=== PATIENT | male | born 1950 | race Caucasian/White ===

== ENCOUNTER → 2016-02-24 | Outpatient (CLI) | payer MEDICARE, BC ==
[~2016-02-24] MED LIST: ALPR1 PO; ASPI1TAB69 PO; ASPI81CH37 CHEW; BENA25TA3 PO; BENA25TA8 PO; CALC1TAB87 PO; CHLORO250 PO; COLY4000S PO; COMMODE 3-IN-11 MIS; CPMMACHINE; ENOX40P SQ; LACT10SO PO; LEXA5TAB PO; LISI-360 PO; LISI10TA3 PO; LORA1TAB12 PO; MULT-65 PO; MULT1TAB84 PO; NAPR500T PO; OXYC1CAP PO; PERC5TAB12 PO; PRAV20TA2 PO; VITA500L BUCCAL; VITA500S3 SL; WALKER WHEELS/F1 MIS; WARF4 PO
[2016-02-24 11:46] LABS: MEAN CORPUSCULAR HEMOGLOBIN 28.6 PG (27.0-34.0); MEAN CORPUSCULAR HGB CONC 33.7 % (32.0-36.0); PLATELET COUNT 307 TH/MM3 (150-450); RED BLOOD COUNT 4.94 MIL/MM3 (4.50-5.90); RED CELL DISTRIBUTION WIDTH 15.1 % (11.6-17.2); REVIEW FLAG FINAL; WHITE BLOOD COUNT 7.6 TH/MM3 (4.0-11.0)
[2016-02-24 12:13] LABS: ALT (GPT) 23 U/L (12-78); ANION GAP 6 MEQ/L (5-15); AST (GOT) 12 U/L (15-37); BICARBONATE 28.5 MEQ/L (21.0-32.0); BLOOD UREA NITROGEN 11 MG/DL (7-18); CHLORIDE 105 MEQ/L (98-107); GLOMERULAR FILTRATION RATE 65 ML/MIN (>89); GLUCOSE,FASTING 97 MG/DL (74-99); POTASSIUM 4.1 MEQ/L (3.5-5.1); SODIUM (NA) 139 MEQ/L (136-145)
[2016-02-24 12:38] LABS: ALKALINE PHOSPHATASE 82 U/L (45-117); FREE T4 0.96 NG/DL (0.76-1.46); HDL CHOLESTEROL 48.6 MG/DL (40.0-60.0); LDL CHOLESTEROL 118 MG/DL (0-99); TOTAL BILIRUBIN ADULT 0.4 MG/DL (0.2-1.0)
== END ==
LOC: CLAB 11:15
PROVIDERS: ATTEND Family Medicine
DX: I10 Essential (primary) hypertension (principal); R53.82 Chronic fatigue, unspecified; E11.9 Type 2 diabetes mellitus without complications
CPT/HCPCS: 36415; 80053; 80061; 82306; 82607; 84403; 84439; 84443; 85027

== ENCOUNTER 2016-04-29 13:49 | Inpatient (IN) | payer MEDICARE, BC ==
[~2016-04-29] VITALS: Ht 190.5 cm; Wt 126.9 kg
[2016-04-30] MEDS ORDERED: LEXA5TAB PO (09:15)
[2016-04-30] MEDS ORDERED: LISI10TA3 PO (09:15)
[2016-04-30] MEDS ORDERED: LORA1TAB12 PO (09:17)
[2016-04-30] MEDS ORDERED: NAPR500T PO (09:18)
[2016-04-30] MEDS ORDERED: MULT1TAB84 PO (09:20)
[2016-04-30] MEDS ORDERED: CALC1TAB87 PO (09:20)
[2016-04-30] MEDS ORDERED: VITA500L BUCCAL (09:20)
[2016-05-10] MEDS ORDERED: BENA25TA3 PO (07:20)
[2016-05-10] MEDS ORDERED: PRAV20TA2 PO (07:25)
[2016-05-10] MEDS ORDERED: OXYC1CAP PO (07:25)
[2016-05-17] VITALS (7 sets, daily range): BP systolic 117–145; BP diastolic 57–78; PULSE 59–66; RESP 16–20; TEMP 95.5–98.3; O2SAT 93–97
[2016-05-17] MEDS: POVIDONE IODINE 7.5% SCRUB 118 ML BOTTLE TOPICAL SCH (05:50)
[2016-05-17] MEDS ORDERED: SODIUM CHLOR 0.9% 250 ML INJ 250 ML ONE (05:51)
[2016-05-17] MEDS ORDERED: VANCOMYCIN HCL 1000 MG VIAL ONE (05:51)
[2016-05-17] MEDS ORDERED: LACTATED RINGER'S 1000 ML INJ 1,000 ML ONE (05:51)
[2016-05-17] MEDS ORDERED: ceFAZolin 2 GM PREMIX 50 ML ONE (05:51)
[2016-05-17] MEDS ORDERED: DEXAMETHASONE SOD PHOS 20 MG/5 ML VIAL ONE (05:51)
[2016-05-17] MEDS ORDERED: VANCOMYCIN 1000 MG/NS 250 ML (for <70 kg) IV SCH ×2 (06:00)
[2016-05-17] MEDS: CHLORHEXIDINE GLUCONATE 4% SOLN 120 ML BTL TOPICAL SCH (06:00)
[2016-05-17] MEDS ORDERED: SODIUM CHLORID 0.9% 500 ML IV PRN (06:00)
[2016-05-17] MEDS ORDERED: ceFAZolin 2 GM PREMIX 50 ML IV SCH (06:00)
[2016-05-17] MEDS ORDERED: DEXAMETHASONE SOD PHOS 20 MG/5 ML VIAL IV SCH (06:00)
[2016-05-17] MEDS ORDERED: METOPROLOL TARTRATE 25 MG TAB PO PRN (06:00)
[2016-05-17] MEDS ORDERED: INSULIN HUMAN REGULAR 1,000 UNITS/10 ML VIAL SQ PRN (06:00)
[2016-05-17] MEDS ORDERED: LACTATED RINGER'S 1000 ML IV PRN (06:00)
[2016-05-17] MEDS ORDERED: GENTAMICIN SULFATE 80 MG/2 ML VIAL ONE (06:12)
[2016-05-17] MEDS ORDERED: CHLORHEXIDINE GLUCONATE 2 % 1 PACK (2 CLOTHS) TOPICAL PRN (06:30)
[2016-05-17] MEDS ORDERED: POVIDONE IODINE 5% (ANTISEPSIS KIT) 4 APPLICATIONS EACH NARE PRN (06:30)
[2016-05-17] MEDS ORDERED: MIDAZOLAM HCL 2 MG/2 ML VIAL ONE (06:39)
[2016-05-17] MEDS ORDERED: FAMOTIDINE 20 MG/2 ML VIAL ONE (06:39)
[2016-05-17] MEDS ORDERED: ACETAMINOPHEN 1000 MG/100 ML VIAL IV ONE (06:39)
[2016-05-17] MEDS ORDERED: fentaNYL CITRATE 250 MCG/5 ML AMP ONE ×2 (06:40→09:12)
[2016-05-17] MEDS ORDERED: ROPIVACAINE PERI-ARTICULAR INJECTION. P-ARTICULR SCH ×5 (07:00)
[2016-05-17] MEDS ORDERED: TRANEXAMIC ACID IV SCH (07:00)
[2016-05-17] MEDS ORDERED: TRANEXAMIC PERI-ARTICULAR 3,000 MG/NS 100 ML P-ARTICULR SCH ×2 (07:00)
[2016-05-17] MEDS ORDERED: SODIUM CHLORIDE 0.9% IV SCH (07:00)
[2016-05-17] MEDS ORDERED: EXPAREL PERI-ARTICULAR INJECTION (TOTAL VOL. 60 ML) P-ARTICULR SCH ×2 (07:00)
[2016-05-17] MEDS ORDERED: PERC5TAB12 PO (07:10)
[2016-05-17] MEDS ORDERED: ENOX40P SQ (07:11)
[2016-05-17] MEDS ORDERED: ASPI81CH37 CHEW (07:12)
[2016-05-17] MEDS ORDERED: NALOXONE HCL 0.4 MG/ML AMP IV PRN (07:15)
[2016-05-17] MEDS ORDERED: MORPHINE SULFATE 4 MG/ML INJ IV PUSH PRN (07:15)
[2016-05-17] MEDS ORDERED: SODIUM CHLORIDE 0.9% FLUSH 5 ML FLUSH IVF PRN (07:15)
[2016-05-17] MEDS ORDERED: diphenhydrAMINE HCL 50 MG/ML VIAL IV PRN (07:15)
[2016-05-17] MEDS ORDERED: LORazepam 1 MG TAB PO PRN (07:15)
[2016-05-17] MEDS ORDERED: MAGNESIUM HYDROXIDE SUSP 30 ML CUP PO PRN (07:15)
[2016-05-17] MEDS ORDERED: Post-op Orders (for Pharmacy) MISC XX ONE (07:15)
[2016-05-17] MEDS ORDERED: ACETAMINOPHEN/HYDROcodone 325 MG/7.5 MG TAB PO PRN (07:15)
[2016-05-17] MEDS: SODIUM CHLORIDE 0.9% FLUSH 5 ML FLUSH IVF SCH ×2 (09:00→21:00)
--- NOTE | 2016-05-17 09:29 | RADRPT ---
EXAM DATE/TIME: 05/17/2016 10:15 [facility] COMPARISON: No previous studies available for comparison. INDICATIONS : Post op knee surgery MEDICAL HISTORY : None. SURGICAL HISTORY : None. ENCOUNTER: Initial ACUITY: 1 day PAIN SCORE: Non-responsive. LOCATION: Right knee FINDINGS: Patient is status post right total knee arthroplasty. Subcutaneous emphysema is seen anterior to the knee, within the knee joint and an air-fluid level in the suprapatellar region. Tibial and femoral co mponents appear well-seated. No fracture or dislocation. CONCLUSION: Postop changes right total knee arthroplasty. Kulwinder Pimentel MD on May 17, 2016 at 9:27 Board Certified Radiologist. This report was verified electronically.
[2016-05-17] MEDS: SODIUM CHLOR 0.9% 1000 ML INJ 1,000 ML IV SCH ×2 (09:30→16:54)
[2016-05-17] MEDS ORDERED: DO NOT ADM ANY ANTICOAGULANT DRUGS PRN (10:00)
[2016-05-17] MEDS ORDERED: *morphine SULFATE 8 MG/ML PERIprocedure ONLY ONE (10:09)
[2016-05-17] MEDS: ONDANSETRON HCL 4 MG/2 ML VIAL IVP PRN ×3 (11:27→22:58)
[2016-05-17] MEDS: ACETAMINOPHEN/HYDROcodone 325 MG/7.5 MG TAB PO PRN ×3 (11:28→19:46)
--- NOTE | 2016-05-17 13:12 | HHI.DCPOC ---
Discharge Care Plan Diagnosis: (1) Primary localized osteoarthrosis, lower leg Your Health Problems Are: Difficulty with ADL Goals to Promote Your Health * To prevent worsening of your condition and complications * To maintain your health at the optimal level Directions to Meet Your Goals Take your medications as prescribed Follow your dietary instruction Follow activity as directed Keep your appointments as scheduled Take your immunizations and boosters as scheduled If your symptoms worsen call your PCP, if no PCP go to Urgent Care Center or Emergency Room Smoking is Dangerous to Your Health. Avoid second hand smoke Call the 24-hour hour crisis hotline for domestic abuse at Evaristo Tee May 17, 2016 13:12
[2016-05-17] MEDS ORDERED: CPMMACHINE (13:14)
[2016-05-17] MEDS ORDERED: WALKER WHEELS/F1 MIS (13:14)
[2016-05-17] MEDS ORDERED: COMMODE 3-IN-11 MIS (13:14)
[2016-05-17] MEDS ORDERED: NEOSTIGMINE 3 MG/3 ML SYR IV ONE (14:06)
[2016-05-17] MEDS ORDERED: PHENYLEPH/NS 1000 MCG/10 ML SYR IV ONE (14:06)
[2016-05-17] MEDS ORDERED: ePHEDrine/NS 25 MG/5 ML SYR IV ONE (14:06)
[2016-05-17] MEDS ORDERED: ONDANSETRON HCL 4 MG/2 ML VIAL IV PUSH ONE (14:06)
[2016-05-17] MEDS ORDERED: PROPOFOL 200 MG/20 ML AMP IV ONE (14:06)
--- NOTE | 2016-05-17 16:01 | PD.CONS ---
HPI Service [facility] Hospitalists Consult Requested By Dr Urrutia Reason for Consult Medical management Primary Care Physician Edward Cazares MD Diagnoses: History of Present Illness Is a 66-year-old male with past medical history as detailed below who presents to [facility] for elective right knee arthroplasty. The patient states that 13 years ago he had an accident after which he needed a right knee graft. The patient has been having increasing pain in bilateral knees. The patient status post total right knee arthroplasty by Dr. Urrutia. The patient complains only of nausea, denies chest pain, denies loss of breath, denies abdominal pain, denies diarrhea, denies fevers or chills, denies dysuria. I am consulted for medical management. Review of Systems As per HPI, other systems reviewed by me and negative Past Family Social History Allergies: Coded Allergies: No Known Allergies (Unverified , 04/30/16) Past Medical History 1. HTN 2. Hyperlipidemia 3. Diabetes 4. Depression/anxiety 5. As per records pulmonary embolism Past Surgical History 1. Left hip surgery Reported Medications Reported Meds & Active Scripts Aspirin Low Dose (Aspirin) 81 Mg Chew 81 Mg CHEW BID Lovenox Inj (Enoxaparin Sodium) 40 Mg/0.4 Ml Syr 40 Mg SQ DAILY Percocet (Oxycodone-Acetaminophen) 5-325 mg Tab 1-2 Tab PO Q4H PRN Oxycodone (Oxycodone HCl) 5 Mg Cap 5 Mg PO Q8H PRN Pravastatin 20 Mg Tab 20 Mg PO HS Benadryl Allergy (Diphenhydramine HCl) 25 Mg Tab 25 Mg PO HS PRN Vitamin B-12 (Cyanocobalamin) 500 Mcg Lozg 2,500 Mcg BUCCAL DAILY Calcium 600 with Vitamin D (Calcium Carbonate-Cholecalciferol) 600-400 mg-Unit Tab 1 Tab PO DAILY Multivitamin Adults (Multiple Vitamins W/ Minerals) 1 Tab 1 Tab PO DAILY Naproxen 500 Mg Tab 500 Mg PO BID PRN Lorazepam 1 Mg Tab 1 Mg PO HS PRN Lexapro (Escitalopram Oxalate) 5 Mg Tab 5 Mg PO HS Lisinopril 10 Mg Tab 10 Mg PO HS Active Ordered Medications Current Medications Medications (Trade) Dose Ordered Sig/Chani Route Start Time Stop Time Status Last Admin (Betadine 7.5% Scrub) 1 applic ONCE TOPICAL 05/17/16 06:00 05/20/16 05:59 05/17/16 05:50 Chlorhexidine Gluconate 1 applic 1 applic ONCE TOPICAL 05/17/16 06:00 05/20/16 05:59 Lactated Ringer's 1,000 ml @ 30 mls/hr Q24H PRN IV 05/17/16 06:00 05/20/16 05:59 05/17/16 05:50 (NS 1000 ml Inj) 1,000 ml @ 100 mls/hr Q10H IV 05/17/16 07:05 05/17/16 09:30 (NS Flush) 2 ml UNSCH PRN IVF 05/17/16 07:15 IV Flush 2 ml 2 ml BID IVF 05/17/16 09:00 (Ancef Inj/NS Inj) 100 ml @ 200 mls/hr Q6H IV 05/17/16 12:00 05/18/16 00:29 05/17/16 11:27 (Lovenox Inj) 40 mg Q24H SQ 05/18/16 08:00 (Morphine Inj) 3 mg Q3H PRN IV PUSH 05/17/16 07:15 ([place] 7.5-325 Mg) 1 tab Q4H PRN PO 05/17/16 07:15 ([place] 7.5-325 Mg) 2 tab Q4H PRN PO 05/17/16 07:15 05/17/16 15:51 (Theragran M Tab) 1 tab BID PO 05/18/16 21:00 07/17/16 20:59 (Zofran Inj) 4 mg Q6H PRN IVP 05/17/16 07:15 05/17/16 11:27 (Colace) 100 mg BID PO 05/18/16 21:00 (Milk Of Magnesia Liq) 30 ml DAILY PRN PO 05/17/16 07:15 (Narcan Inj) 0.4 mg UNSCH PRN IV 05/17/16 07:15 (Benadryl Inj) 25 mg Q6H PRN IV 05/17/16 07:15 (Lexapro) 5 mg HS PO 05/17/16 21:00 (Prinivil) 10 mg HS PO 05/17/16 21:00 (Ativan) 1 mg HS PRN PO 05/17/16 07:15 Miscellaneous Information ALL N[facility] PRN .XX 05/17/16 10:00 05/18/16 09:59 Family History Patient's daughter has diabetes. Social History The patient denies drinking alcohol, smoking or using illicit drugs. The patient is and lives with . He has 3 grownup children. Physical Exam Vital Signs Vital Signs Date Time Temp Pulse Resp B/P Pulse Ox O2 Delivery O2 Flow Rate FiO2 05/17/16 13:00 96.4 66 16 117/57 95 05/17/16 12:36 93 Nasal Cannula 2.00 05/17/16 11:00 97.0 66 16 145/74 93 05/17/16 10:00 98.4 73 15 166/67 95 Nasal Cannula 2 05/17/16 09:45 68 15 146/78 92 Nasal Cannula 2 05/17/16 09:30 72 15 155/77 93 Nasal Cannula 3 05/17/16 09:15 70 15 153/73 93 Nasal Cannula 3 05/17/16 09:05 98.4 83 15 157/78 96 Nasal Cannula 3 05/17/16 05:52 98.3 63 20 140/78 95 Physical Exam GENERAL: This is a well-nourished, well-developed patient, in no apparent distress. SKIN: No rashes, ecchymoses or lesions. Cool and dry. HEAD: Atraumatic. Normocephalic. No temporal or scalp tenderness. EYES: Pupils equal round and reactive. Extraocular motions intact. No scleral icterus. No injection or drainage. ENT: Nose without bleeding, purulent drainage or septal hematoma. Throat without erythema, tonsillar hypertrophy or exudate. Uvula midline. Airway patent. NECK: Trachea midline. No JVD or lymphadenopathy. Supple, nontender, no meningeal signs. CARDIOVASCULAR: Regular rate and rhythm without murmurs, gallops, or rubs. RESPIRATORY: Clear to auscultation. Breath sounds equal bilaterally. No wheezes , rales, or rhonchi. GASTROINTESTINAL: Abdomen soft, non-tender, nondistended. No hepato-splenomegaly , or palpable masses. No guarding. MUSCULOSKELETAL: Right lower extremity is bandaged. Range of motion decreased in right knee due to pain. Pedal pulses are palpable and strong. There is good capillary refill in bilateral extremities. There is some edema in the postsurgical right knee. NEUROLOGICAL: Awake and alert. Cranial nerves II through XII intact. Motor and sensory grossly within normal limits. Five out of 5 muscle strength in all muscle groups. Normal speech. Laboratory Laboratory Tests Test 05/17/16 05:45 Blood Type O POSITIVE Antibody Screen NEGATIVE Imaging Last Impressions Knee X-Ray 05/17/16 0705 Signed Impressions: Service Date/Time: Tuesday, May 17, 2016 10:15 - CONCLUSION: Postop changes right total knee arthroplasty. Kulwinder Pimentel MD Assessment and Plan Problem List: (1) Primary localized osteoarthrosis, lower leg ICD Code: M17.10 Status: Acute Plan: Patient status post total right knee arthroplasty. Continue pain control as per orthopedic surgery recommendations. IV Zofran for nausea. (2) HTN (hypertension) ICD Code: I10 Status: Chronic Plan: Blood pressure seems to be stable. Continue home antihypertensive medications. The patient is on lisinopril. (3) Hyperlipidemia ICD Code: E78.5 Status: Acute Plan: Hold statin for now. May resume upon discharge. (4) Depression ICD Code: F32.9 Status: Acute Plan: On Lexapro. Assessment and Plan GI prophylaxis: Add PPI. DVT: SCDs, chemoprophylaxis as per orthopedic surgery. Code Status Full code Discussed Condition With Patient, , RN Problem Qualifiers (1) HTN (hypertension): Qualified Code: I10 - Essential hypertension (2) Depression: Qualified Code: F32.9 - Depression, unspecified depression type Adan Patricio MD May 17, 2016 16:01
[2016-05-17] MEDS ORDERED: ESCITALOPRAM OXALATE 10 MG TAB PO SCH (21:00)
[2016-05-17] MEDS ORDERED: LISINOPRIL 10 MG TAB PO SCH (21:00)
[2016-05-18 00:12] VITALS: BP 124/60; PULSE 64; RESP 19; TEMP 96; O2SAT 98
[2016-05-18] MEDS: SODIUM CHLOR 0.9% 1000 ML INJ 1,000 ML IV SCH ×2 (03:05→10:04)
[2016-05-18 04:11] VITALS: BP 136/64; PULSE 20; RESP 18; TEMP 96.1; O2SAT 97
[2016-05-18] MEDS: ACETAMINOPHEN/HYDROcodone 325 MG/7.5 MG TAB PO PRN ×3 (05:49→13:39)
[2016-05-18] MEDS: ONDANSETRON HCL 4 MG/2 ML VIAL IVP PRN ×2 (05:49→13:39)
[2016-05-18] MEDS: CHLORHEXIDINE GLUCONATE 4% SOLN 120 ML BTL TOPICAL SCH (06:00)
[2016-05-18] MEDS: POVIDONE IODINE 7.5% SCRUB 118 ML BOTTLE TOPICAL SCH (06:00)
[2016-05-18 08:00] VITALS: BP 135/71; PULSE 59; RESP 18; TEMP 96; O2SAT 95
[2016-05-18 08:00] LABS: MEAN CELL VOLUME 86.7 FL (80.0-100.0); MEAN CORPUSCULAR HEMOGLOBIN 29.2 PG (27.0-34.0); MEAN CORPUSCULAR HGB CONC 33.6 % (32.0-36.0); PLATELET COUNT 261 TH/MM3 (150-450); RED BLOOD COUNT 4.15 MIL/MM3 (4.50-5.90); RED CELL DISTRIBUTION WIDTH 13.9 % (11.6-17.2); REVIEW FLAG FINAL; WHITE BLOOD COUNT 16.3 TH/MM3 (4.0-11.0)
[2016-05-18] MEDS ORDERED: ENOXAPARIN SODIUM 40 MG/0.4 ML SYRINGE SQ SCH (08:00)
[2016-05-18 08:11] LABS: BICARBONATE 21.2 MEQ/L (21.0-32.0); POTASSIUM 4.6 MEQ/L (3.5-5.1)
[2016-05-18] MEDS: SODIUM CHLORIDE 0.9% FLUSH 5 ML FLUSH IVF SCH (09:00)
--- NOTE | 2016-05-18 09:00 | PD.ORT.PN ---
Subjective Post Op Day #: 1 Subjective Remarks doing well. pain under control. Objective Vitals Vital Signs Date Time Temp Pulse Resp B/P Pulse Ox O2 Delivery O2 Flow Rate FiO2 05/18/16 08:00 96.0 59 18 135/71 95 05/18/16 04:11 96.1 20 18 136/64 97 05/18/16 00:12 96.0 64 19 124/60 98 05/17/16 19:34 96.0 59 20 141/69 97 05/17/16 18:27 94 21 05/17/16 16:57 16 05/17/16 16:00 95.5 65 18 126/70 94 05/17/16 13:00 96.4 66 16 117/57 95 05/17/16 12:36 93 Nasal Cannula 2.00 05/17/16 11:00 97.0 66 16 145/74 93 05/17/16 10:00 98.4 73 15 166/67 95 Nasal Cannula 2 05/17/16 09:45 68 15 146/78 92 Nasal Cannula 2 05/17/16 09:30 72 15 155/77 93 Nasal Cannula 3 05/17/16 09:15 70 15 153/73 93 Nasal Cannula 3 05/17/16 09:05 98.4 83 15 157/78 96 Nasal Cannula 3 I/O 05/17/16 05/17/16 05/17/16 05/18/16 05/18/16 05/18/16 07:00 15:00 23:00 07:00 15:00 23:00 Intake Total 1000 ml 480 ml 480 ml Output Total 300 ml 500 ml 850 ml Balance 700 ml -20 ml -370 ml Intake Oral 480 ml 480 ml IV Total 100 ml Other 900 ml Output Urine Total 250 ml 500 ml 850 ml Estimated Blood Loss 50 ml # Bowel Movements 0 0 Result Diagram: 05/18/16 0720 05/18/16 0700 Objective Remarks in bed, nad incision no erythema, no drainage neg homans nvi Assessment & Plan Ortho Post Op Day #: 1 Problem List: Assessment and Plan s/p R TKA wbat daily dressing changes lovenox d/c planning home. patient wants to start OP PT tomorrow cleared for d/c from ortho f/up dr. redmond 2 weeks Evaristo Tee May 18, 2016 09:00
[2016-05-18 12:00] VITALS: BP 134/62; PULSE 60; RESP 18; TEMP 95.9; O2SAT 97
--- NOTE | 2016-05-18 12:25 | HHI.PR ---
Subjective Remarks Patient is lying in bed pain controlled denies nausea, chest pain or sob denies fevers/chills. wbc elevated Objective Vitals Vital Signs Date Time Temp Pulse Resp B/P Pulse Ox O2 Delivery O2 Flow Rate FiO2 05/18/16 08:00 96.0 59 18 135/71 95 05/18/16 04:11 96.1 20 18 136/64 97 05/18/16 00:12 96.0 64 19 124/60 98 05/17/16 19:34 96.0 59 20 141/69 97 05/17/16 18:27 94 21 05/17/16 16:57 16 05/17/16 16:00 95.5 65 18 126/70 94 05/17/16 13:00 96.4 66 16 117/57 95 05/17/16 12:36 93 Nasal Cannula 2.00 I/O 05/17/16 05/17/16 05/17/16 05/18/16 05/18/16 05/18/16 07:00 15:00 23:00 07:00 15:00 23:00 Intake Total 1000 ml 480 ml 480 ml 695 ml Output Total 300 ml 500 ml 850 ml Balance 700 ml -20 ml -370 ml 695 ml Intake Oral 480 ml 480 ml IV Total 100 ml 695 ml Other 900 ml Output Urine Total 250 ml 500 ml 850 ml Estimated Blood Loss 50 ml # Bowel Movements 0 0 Result Diagram: 05/18/1671905/18/16 07 Imaging Last Impressions Knee X-Ray 05/17/16 07 Signed Impressions: Service Date/Time: Tuesday, May 17, 2016 10:15 - CONCLUSION: Postop changes right total knee arthroplasty. Kulwinder Pimentel MD Objective Remarks GENERAL: This is a well-nourished, well-developed patient, in no apparent distress. SKIN: No rashes, ecchymoses or lesions. Cool and dry. HEAD: Atraumatic. Normocephalic. No temporal or scalp tenderness. EYES: Pupils equal round and reactive. Extraocular motions intact. No scleral icterus. No injection or drainage. ENT: Nose without bleeding, purulent drainage or septal hematoma. Throat without erythema, tonsillar hypertrophy or exudate. Uvula midline. Airway patent. NECK: Trachea midline. No JVD or lymphadenopathy. Supple, nontender, no meningeal signs. CARDIOVASCULAR: Regular rate and rhythm without murmurs, gallops, or rubs. RESPIRATORY: Clear to auscultation. Breath sounds equal bilaterally. No wheezes , rales, or rhonchi. GASTROINTESTINAL: Abdomen soft, non-tender, nondistended. No hepato-splenomegaly , or palpable masses. No guarding. MUSCULOSKELETAL: Right lower extremity is bandaged and on knee range of motion machine. Range of motion decreased in right knee due to pain. Pedal pulses are palpable and strong. There is good capillary refill in bilateral extremities. There is some edema in the postsurgical right knee. NEUROLOGICAL: Awake and alert. Cranial nerves II through XII intact. Motor and sensory grossly within normal limits. Five out of 5 muscle strength in all muscle groups. Normal speech. Procedures sp Right total knee arthroplasty on 05/17/16 Medications and IVs Current Medications Medications (Trade) Dose Ordered Sig/Chani Route Start Time Stop Time Status Last Admin (Betadine 7.5% Scrub) 1 applic ONCE TOPICAL 05/17/16 06:00 05/20/16 05:59 05/17/16 05:50 Chlorhexidine Gluconate 1 applic 1 applic ONCE TOPICAL 05/17/16 06:00 05/20/16 05:59 Lactated Ringer's 1,000 ml @ 30 mls/hr Q24H PRN IV 05/17/16 06:00 05/20/16 05:59 05/17/16 05:50 (NS 1000 ml Inj) 1,000 ml @ 100 mls/hr Q10H IV 05/17/16 07:05 05/17/16 09:30 (NS Flush) 2 ml UNSCH PRN IVF 05/17/16 07:15 (NS Flush) 2 ml BID IVF 05/17/16 09:00 (Lovenox Inj) 40 mg Q24H SQ 05/18/16 08:00 05/18/16 09:52 (Morphine Inj) 3 mg Q3H PRN IV PUSH 05/17/16 07:15 ([place] 7.5-325 Mg) 1 tab Q4H PRN PO 05/17/16 07:15 ([place] 7.5-325 Mg) 2 tab Q4H PRN PO 05/17/16 07:15 05/18/16 09:53 (Theragran M Tab) 1 tab BID PO 05/18/16 21:00 07/17/16 20:59 (Zofran Inj) 4 mg Q6H PRN IVP 05/17/16 07:15 05/18/16 05:49 (Colace) 100 mg BID PO 05/18/16 21:00 (Milk Of Magnesia Liq) 30 ml DAILY PRN PO 05/17/16 07:15 (Narcan Inj) 0.4 mg UNSCH PRN IV 05/17/16 07:15 (Benadryl Inj) 25 mg Q6H PRN IV 05/17/16 07:15 (Lexapro) 5 mg HS PO 05/17/16 21:00 05/17/16 19:43 (Prinivil) 10 mg HS PO 05/17/16 21:00 05/17/16 19:43 (Ativan) 1 mg HS PRN PO 05/17/16 07:15 Urinary Catheter: No Vascular Central Line Catheter: No A/P Problem List: (1) Primary localized osteoarthrosis, lower leg ICD Code: M17.10 Status: Acute Plan: Patient status post total right knee arthroplasty. Continue pain control as per orthopedic surgery recommendations. IV Zofran for nausea. Patient cleared for DC by orthopedic surgery. (2) HTN (hypertension) ICD Code: I10 Status: Chronic Plan: Bp stable, continue to monitor bp. Continue lisinopril. (3) Hyperlipidemia ICD Code: E78.5 Status: Acute Plan: Hold statin for now. May resume upon discharge. (4) Depression ICD Code: F32.9 Status: Acute Plan: On Lexapro. Seems stable. Assessment and Plan DVT prophylaxis: Lovenox SQ. Discharge Planning Patient is medically clear for DC. DC as per primary team. Problem Qualifiers (1) HTN (hypertension): Qualified Code: I10 - Essential hypertension (2) Depression: Qualified Code: F32.9 - Depression, unspecified depression type Adan Patricio MD May 18, 2016 12:25
[2016-05-18] MEDS ORDERED: DOCUSATE SODIUM 100 MG CAP PO SCH (21:00)
[2016-05-18] MEDS ORDERED: MULTIVITAMINS/MINERALS THERAPEUTIC TAB PO SCH (21:00)
--- NOTE | 2016-05-19 08:48 | MP ---
cc: RICKIE CUNNINGHAM DATE OF SURGERY 05/17/16 PREOPERATIVE DIAGNOSIS Right knee osteoarthritis POSTOPERATIVE DIAGNOSES Right knee osteoarthritis PROCEDURE Right total knee arthroplasty SURGEON Dr. Raffi Cunningham TECHNICAL SPECIALIST CYTOGENETICS DONNIE Rahman ANESTHESIA General with a femoral nerve block ESTIMATED BLOOD LOSS 50 mL COMPLICATIONS None. IMPLANTS USED. DePuy attune size 10 posterior stabilized, femoral component size 10 rotating platform tibia baseplate, size 5-mm tibial insert, size 41 mm patella. JUSTIFICATION The patient is a 66-year male with a history of severe end-stage osteoarthritis involving the right knee. He has severe disabling pain with standing, walking and ambulation, weightbearing activities and severe pain at rest. He has failed greater than three months of nonoperative conservative treatment to include medication therapy injections, ambulatory assistive aids, home exercise program, activity modification. The patient is not overweight. X-ray of the right knee reveal reveals severe end-stage osteoarthritis with [id number] joint space narrowing, subchondral sclerosis, subchondral cyst osteophyte formation and varus deformity. The patient was counseled as to risks, benefits and alternatives to a total knee arthroplasty. The risks discussed include but limited to bleeding, infection, damage to nerves, blood vessels, pain, stiffness, failure of components, blood clots, pulmonary embolism and even . The patient's pain is severe and he favored benefits over the risks and did wish to proceed with surgery. PROCEDURE IN DETAIL A written consent obtained. The patient identified, taken to the operating room and placed supine on the operating table. General anesthesia was administered as well as 2 grams of IV Ancef and 1 gram of IV vancomycin. He did receive a preoperative femoral nerve block by the anesthesiologist. A well-padded tourniquet was placed on the right thigh. The right lower extremity prepped and draped using as isopropyl alcohol, Hibiclens solution and Chloraprep solution. After time-out was performed, an Esmarch bandage was used to exsanguinate the right lower extremity. The tourniquet was inflated to 250 mmHg. A longitudinal incision was made over the anterior aspect of the right knee and medial parapatellar arthrotomy was performed. The patella was everted and patellar resection guide was used to resect 9 mm of patella. A size 41 mm guide was placed, three drill holes were placed and a 41 mm trial fit well. Attention was turned to the femur where an intramedullary guide was placed. The distal femoral guide was set to remove 10 mm of distal femur 5 degrees off the valgus axis alignment. Oscillating saw was used to perform distal femoral cut. Attention was turned to the tibia where an extramedullary tibial guide was used to resect 5 mm off the lowest portion of the medial tibial plateau. The tibial guide set in place. Tibial cut was performed. A 5 mm spacer block showed full extension. Attention was turned back to the femur. The AP sizer block measured size 10. The anterior reference 3 degree external rotation guide was used to pin a size [address]. The anterior and posterior chamfer cuts were performed. A size 10 PCL box guide pinned in place. PCL was boxed with an oscillating saw. The medial and lateral meniscus remnants were removed as well as bone and soft tissue debris from the posterior portion of the knee. A size 10 tibial base was pinned in place. Tibia was drilled were evaluated and final component was cemented in place. There was lateral patellar tracking. A lateral release was performed which improved patellar tracking. Range of motion 0-140, no evidence of tibial lift-off. Varus-valgus balance appeared appropriate and symmetric. With the tourniquet deflated, Bovie cautery was used for hemostasis. The knee was thoroughly irrigated with sterile saline pulse lavage antibiotic impregnated solution. The arthrotomy incision was closed with #1 Vicryl suture. Subcutaneous layer with 2-0 Vicryl suture and skin was closed with Dermabond. Sterile dressing applied. The patient tolerated the procedure well. No intraoperative complications noted. Wally Tee, physician digital sales assistant certified, was present during the entire procedure to include patient positioning and the procedure itself. The medical necessity of a physician digital sales assistant was indicated in patient due to the complexity of the procedure. He assisted with appropriate manipulation of the leg and also traction of muscle, tendon, bone and neurovascular structures. He assisted with preparation of bone and also implantation of the prosthetic replacement. MD JASMIN Ramirez/ /8:44 AM 8:42 AM
--- NOTE | 2016-05-24 08:31 | MD ---
cc: RICKIE URRUTIA M.D. ADMISSION DATE: 05/17/2016 DISCHARGE DATE: 05/18/2016 ADMISSION DIAGNOSIS Severe degenerative osteoarthritis right knee. DISCHARGE DIAGNOSIS Severe degenerative osteoarthritis right knee. HISTORY OF PRESENT ILLNESS Mr. Zuñiga is a 66-year-old male who presented to the [facility] for evaluation by Dr. Rickie Urrutia regarding his severe and progressive right knee pain. The patient states the right knee has been bothering him for many years and has a history of surgery 10 plus years ago on his right knee. He states currently his pain is constant, severe aching sensation aggravated with weightbearing activities. He has no alleviating factors, although in the past he has tried medications, bracing, physical therapy, home exercise program, previous surgery, as well as corticosteroid injections without significant relief of symptoms. He does have x-ray evidence of severe degenerative osteoarthritis of the right knee. While in the office the patient was counseled on his diagnosis and treatment options. The risks, benefits, indications were all discussed in great detail. The patient did elect to proceed with surgical intervention to include a right total knee arthroplasty. PROCEDURE PERFORMED Date of surgery 05/17/2016, right total knee arthroplasty. POSTOP After surgery the patient was admitted to [facility] where he received appropriate medical management, pain control, DVT prophylaxis, physical therapy as well. DISCHARGE Once being discharged from the hospital, the patient is cleared to go home. He is in stable condition. He may weight-bear as tolerated. The patient has been instructed on appropriate wound care management and is to receive daily dressing changes. He has been provided prescriptions for pain control as well as DVT prophylaxis medication. The patient did elect to proceed with outpatient physical therapy and has been provided an appointment to start that, he has also been provided an appointment to see Dr. Rickie Urrutia back to the office approximately 2 weeks from his date of surgery. The patient has asked appropriate questions which have all been answered. He has been discharged. Dictated by: DONNIE Avilez MD JASMIN Ramirez/WILLIAM /8:06 AM /8:31 AM
[2016-06-03] MEDS ORDERED: ASPI1TAB69 PO (11:51)
== END 2016-05-18 16:57 | disposition home or self-care (01) | DRG 470 ==
LOC: HSDI 05-17 05:14 → N06B 05-17 10:46
PROVIDERS: ADMIT Orthopaedic Surgery Sports Medicine; ATTEND Orthopaedic Surgery Sports Medicine
PROC: 0SRC0J9 Replacement of Right Knee Joint with Synthetic Substitute, Cemented, Open Approach (ICD-10-PCS; principal; 2016-05-17 06:55)
DX: M17.11 Unilateral primary osteoarthritis, right knee (principal); I10 Essential (primary) hypertension; E78.5 Hyperlipidemia, unspecified; E11.9 Type 2 diabetes mellitus without complications; F41.8 Other specified anxiety disorders; Z86.711 Personal history of pulmonary embolism
CPT/HCPCS: 73560; 80048; 85027; 86850; 86900; 86901; 94150; C1776; C9290; J0131; J0690; J1100; J1580; J1650; J2250; J2270; J2370; J2405; J2710; J3010; J3370; J7030; J7050; J7120; L1830

== ENCOUNTER → 2016-04-30 | Outpatient (CLI) | payer MEDICARE, BC ==
[2016-04-30 09:32] LABS: AUTOMATED NEUTROPHIL # 5.1 TH/MM3 (1.8-7.7); BASOPHIL % 0.4 % (0.0-2.0); EOSINOPHIL # 0.1 TH/MM3 (0-0.4); EOSINOPHIL % 1.7 % (0.0-4.0); HEMATOCRIT 43.8 % (39.0-51.0); HEMO FLAGS DIFF FINAL; LYMPH % 24.9 % (9.0-44.0); MEAN CELL VOLUME 87.4 FL (80.0-100.0); MEAN CORPUSCULAR HEMOGLOBIN 28.9 PG (27.0-34.0); MEAN CORPUSCULAR HGB CONC 33.1 % (32.0-36.0); MONO % 8.6 % (0.0-8.0); NEUT % 64.4 % (16.0-70.0); PLATELET COUNT 288 TH/MM3 (150-450); RED BLOOD COUNT 5.02 MIL/MM3 (4.50-5.90); RED CELL DISTRIBUTION WIDTH 14.5 % (11.6-17.2)
[2016-04-30 09:38] LABS: BLOOD, URINE NEG (NEG); COMMENT (UR) CULT NOT INDICATED; CULTURE IF INDICATED CULT NOT INDICATED; GLUCOSE,URINE NEG (NEG); KETONE, URINE NEG (NEG); MUCUS URINE FEW /lpf (OCC); NITRITE,URINE NEG (NEG); PH, URINE 5.5 (5.0-8.5); URINE COLOR YELLOW (YELLW/STRAW)
[2016-04-30 09:39] LABS: APTT (PATIENT) 28.1 SEC (24.3-30.1); PROTHROMBIN TIME - PATIENT 11.1 SEC (9.8-11.6)
[2016-04-30 09:51] LABS: WESTERGREN SEDIMENTATION RATE 5 mm/hr (0-20)
[2016-04-30 10:05] LABS: ALKALINE PHOSPHATASE 79 U/L (45-117); ALT (GPT) 22 U/L (12-78); ANION GAP 7 MEQ/L (5-15); AST (GOT) 15 U/L (15-37); BICARBONATE 28.4 MEQ/L (21.0-32.0); BLOOD UREA NITROGEN 12 MG/DL (7-18); CHLORIDE 105 MEQ/L (98-107); GLOMERULAR FILTRATION RATE 58 ML/MIN (>89); GLUCOSE,FASTING 152 MG/DL (74-99); POTASSIUM 4.3 MEQ/L (3.5-5.1); SODIUM (NA) 140 MEQ/L (136-145); TOTAL BILIRUBIN ADULT 0.4 MG/DL (0.2-1.0)
--- NOTE | 2016-04-30 11:38 | RADRPT ---
EXAM DATE/TIME: 04/30/2016 09:54 [facility] COMPARISON: CHEST SINGLE AP, January 19, 2015, 20:19. INDICATIONS : Evaluate for pneumonia, pneumothorax, or communicable disease. Pre-op right total knee. MEDICAL HISTORY : Hypertension. SURGICAL HISTORY : None. ENCOUNTER: Initial ACUITY: 1 day PAIN SCORE: 0/10 LOCATION: Bilateral chest FINDINGS: The heart is normal in size. There are mild chronic interstitial changes throughout the pulmonary par enchyma. Visualized bony structures demonstrate degenerative changes but are otherwise intact. CONCLUSION: 1. No acute cardiopulmonary findings. Reece Gray MD on April 30, 2016 at 11:36 Board Certified Radiologist. This report was verified electronically.
--- NOTE | 2016-05-01 16:19 | EKG ---
Date Performed: 04/30/2016 Time Performed: 09:09:01 PTAGE: 66 years EKG: Sinus rhythm Since previous tracing, no significant change noted NORMAL ECG NO PREVIOUS TRACING DOCTOR: Luis Zamora Interpretating Date/Time 05/01/2016 16:17:52
== END ==
LOC: CPRE 08:48
PROVIDERS: ATTEND Orthopaedic Surgery Sports Medicine
DX: M25.60 Stiffness of unspecified joint, not elsewhere classified (principal); M25.50 Pain in unspecified joint; M17.11 Unilateral primary osteoarthritis, right knee; Z79.01 Long term (current) use of anticoagulants; Z01.810 Encounter for preprocedural cardiovascular examination
CPT/HCPCS: 36415; 71020; 80053; 81001; 85025; 85610; 85652; 85730; 93005

== ENCOUNTER 2016-05-10 06:31 | Day surgery (SDC) | payer MEDICARE, BC ==
[~2016-05-10] VITALS: Ht 193 cm; Wt 122.7 kg
[~2016-05-10 06:31] MED LIST changes: -ALPR1 PO; -ASPI1TAB69 PO; -ASPI81CH37 CHEW; -BENA25TA3 PO; -BENA25TA8 PO; -CHLORO250 PO; -COLY4000S PO; -COMMODE 3-IN-11 MIS; -CPMMACHINE; -ENOX40P SQ; -LACT10SO PO; -LISI-360 PO; -MULT-65 PO; -OXYC1CAP PO; -PERC5TAB12 PO; -PRAV20TA2 PO; -VITA500S3 SL; -WALKER WHEELS/F1 MIS; -WARF4 PO
[2016-05-10 06:52] VITALS: BP 152/86; PULSE 57; RESP 20; TEMP 98.1; O2SAT 97
[2016-05-10] MEDS ORDERED: BENA25TA3 PO (07:20)
[2016-05-10] MEDS ORDERED: PRAV20TA2 PO (07:25)
[2016-05-10] MEDS ORDERED: OXYC1CAP PO (07:25)
[2016-05-10] MEDS ORDERED: SODIUM CHLORIDE 0.9% 1000 ML IV SCH (08:00)
[2016-05-10] MEDS ORDERED: MIDAZOLAM HCL 5 MG/5 ML VIAL ONE (09:22)
[2016-05-10] MEDS ORDERED: fentaNYL CITRATE 250 MCG/5 ML AMP ONE (09:22)
[2016-05-10 10:05] VITALS: BP 143/74; PULSE 54; RESP 20; TEMP 98.1; O2SAT 94
[2016-05-10 10:20] VITALS: BP 135/77; PULSE 52; RESP 20; O2SAT 94
[2016-05-10] MEDS ORDERED: IOHEXOL 350 MG/ML 50 ML BTL (for RAD DIAG) IV ONE (10:27)
--- NOTE | 2016-05-10 10:28 | PD.RAD ---
Post Procedure Progress Note Procedure Date: May 10, 2016 Supervising Radiologist: Arnel Oquendo Plan of Activity See PACS Report for procedural detail/treatment Vascular-Venous Procedure Procedure 1 Procedure(s): Retrievable IVC Filter Access Access Site(s): Right Jugular Vein Closure Site(s): Right manual pressure Arnel Oquendo MD May 10, 2016 10:28
[2016-05-10 10:50] VITALS: BP 129/68; PULSE 51; RESP 20; O2SAT 95
[2016-05-10 11:20] VITALS: BP 111/64; PULSE 45; RESP 20; O2SAT 93
--- NOTE | 2016-05-10 11:40 | RADRPT ---
EXAM DATE/TIME: 05/10/2016 09:43 [facility] COMPARISON: No previous studies available for comparison. INDICATIONS : Patient is in need of placement of a retrievable IVC filter due to history of DVT and PE. MEDICAL HISTORY : History of anemia, HTN. SURGICAL HISTORY : History of left femoral repair, right shoulder, left hand, bilateral elbows, bilateral knee, left hip surgeries. ENCOUNTER: Initial ACUITY: 2 weeks PAIN SCORE: 5/10 LOCATION: Right knee FLUORO TIME: 1.0 minutes IMAGE SERIES: 2 ACCESS SITE: Right Internal jugular vein SEDATION TIME: 30 minutes CONTRAST: 1.) 10 cc Omnipaque (iohexol) 350 MEDICATION(S): 1.) 3 mg midazolam (Versed) IV 2.) 150 mcg fentanyl (Sublimaze) IV DEVICE(S): 1.) Inferior vena cava Bard Jesusita filter PROCEDURE : 1. Ultrasound-guided venipuncture. 2. Inferior venacavogram. 3. Inferior vena cava filter placement. 4. Conscious sedation with continuous EKG and oximetry monitoring. The risks, benefits and alternatives to the procedure were explained and verbal and written consent w as obtained. The site was prepped in sterile fashion. Full sterile technique was used, including ca p, mask, sterile gloves and gown and a large sterile sheet. Hand hygiene and 2% chlorhexidine and/or betadine/alcohol prep was utilized per protocol for cutaneous antisepsis. The skin and subcutaneous tissues were infiltrated with local anesthetic solution. With ultrasound and fluoroscopic guidance the targeted vein was punctured and a vascular sheath was p laced. Inferior venacavogram was performed to demonstrate level of renal veins. No caval thrombus was identified. The prescribed filter was deployed in the infrarenal inferior vena cava. Following deplo yment the filter was identified in good position. Conscious sedation was performed with the prescribed dosages and duration as above in the presence of an independent trained radiology nurse to assist in the monitoring of the patient. EKG and oximetry remained stable throughout the procedure. The patient tolerated the procedure well and there were n o complications. The patient was sent to post anesthesia recovery in stable condition. CONCLUSION: Uncomplicated inferior vena cava filter placement as above. Arnel Oquendo MD on May 10, 2016 at 11:38 Board Certified Radiologist. This report was verified electronically.
[2016-05-10 12:03] VITALS: BP 151/78; PULSE 60; RESP 20; O2SAT 96
[2016-06-03] MEDS ORDERED: ASPI1TAB69 PO (11:51)
== END 2016-05-10 12:18 | disposition home or self-care (01) ==
LOC: HRIP 06:31 → HROP 06:31
PROVIDERS: ATTEND Orthopaedic Surgery Sports Medicine
DX: Z45.2 Encounter for adjustment and management of vascular access device (principal); M17.11 Unilateral primary osteoarthritis, right knee; I10 Essential (primary) hypertension; Z86.711 Personal history of pulmonary embolism; Z86.718 Personal history of other venous thrombosis and embolism
CPT/HCPCS: 37191; 99152; 99153; C1769; C1880; J2250; J3010; J7030; Q9967

== ENCOUNTER 2016-05-22 19:10 | Emergency (ER) | payer MEDICARE, BC ==
[~2016-05-22] VITALS: Ht 185.4 cm; Wt 88.0 kg
[~2016-05-22 19:10] MED LIST changes: +ASPI81CH37 CHEW; +BENA25TA3 PO; +COMMODE 3-IN-11 MIS; +CPMMACHINE; +ENOX40P SQ; -NAPR500T PO; +PERC5TAB12 PO; +PRAV20TA2 PO; +WALKER WHEELS/F1 MIS
[2016-05-22 19:14] VITALS: BP 127/60; PULSE 116; RESP 16; TEMP 98.5; O2SAT 97
[2016-05-22] MEDS ORDERED: CHLORO250 PO (19:50)
[2016-05-22] MEDS ORDERED: LACTULOSE SYRUP 20 GM/30 ML CUP PO ONE (20:00)
[2016-05-22] MEDS ORDERED: SOD PHOSPHATE/SOD BIPHOSPHATE (ADULT) ENEMA 133ML RECTAL ONE (20:00)
[2016-05-22] MEDS ORDERED: LACT10SO PO (20:05)
[2016-05-22] MEDS ORDERED: COLY4000S PO (20:05)
--- NOTE | 2016-05-22 20:05 | PD ---
HPI Chief Complaint: GI Complaint Time Seen by Provider: 19:49 Travel History International Travel<30 days: No Contact w/Intl Traveler<30days: No Traveled to known affect area: No History of Present Illness HPI 66-year-old male who is status post right knee replacement on 05/17/16, here for evaluation of constipation. The patient has been taking Percocet 5/325 every 4 hours after his knee surgery, last dose was yesterday. His last bowel movement was the day before his surgery. He is complaining of some mild lower abdominal/ left-sided discomfort. No vomiting. No fevers. No history of abdominal surgeries. He is urinating without difficulty. PFSH Past Medical History Arthritis: No Asthma: No Autoimmune Disease: No Anxiety: Yes Depression: Yes Heart Rhythm Problems: No Cancer: No Cardiovascular Problems: No High Cholesterol: No Chemotherapy: No Chest Pain: Yes (multiple times due to anxiety) Congestive Heart Failure: No COPD: No Cerebrovascular Accident: No Diabetes: No Diminished Hearing: No Endocrine: No Gastrointestinal Disorders: Yes (OCCASIONAL GERD) GERD: No Genitourinary: No Hepatitis: No Hiatal Hernia: No Hypertension: Yes Immune Disorder: No Kidney Stones: No Medical other: Yes (history of pulmonary embolism ivc filter placed last week ) Musculoskeletal: Yes (RIYA KNEE DEGENERATION) Neurologic: No Psychiatric: Yes (GENERALIZED ANXIETY DISORDER) Reproductive: No Respiratory: Yes (SLEEP APNEA--NO CPAP, HX PE) Immunizations Current: Yes Migraines: No Radiation Therapy: No Renal Failure: No Seizures: No Sickle Cell Disease: No Sleep Apnea: Yes Thyroid Disease: No Ulcer: No Past Surgical History Abdominal Surgery: No AICD: No Arteriovenous Shunt: No Body Medical Devices: LEFT FEMUR FLORIDALMA AND SCREWS, PIN LEFT HAND, ivc filter Cardiac Surgery: No Ear Surgery: No Endocrine Surgery: No Eye Surgery: No Genitourinary Surgery: No Gynecologic Surgery: No Insulin Pump: No Joint Replacement: No Oral Surgery: No Pacemaker: No Thoracic Surgery: No Social History Alcohol Use: No Tobacco Use: No (never) Substance Use: No Allergies-Medications (Allergen,Severity, Reaction): Coded Allergies: No Known Allergies (Unverified , 05/22/16) Reported Meds & Prescriptions Reported Meds & Active Scripts Active Golytely 236 gm (Polyethylene Glycol/Electrolytes) 4,000 Ml Soln 4,000 Ml PO ONCE Lactulose Liq (Lactulose) 10 Gm/15 Ml Soln 30 Ml PO Q6H PRN 7 Days Commode 3-in-1 (Device) 1 Mis Mis 1 Ea .ROUTE DIRECTED Walker with Front Wheels (Device) 1 Mis Mis 1 Ea .ROUTE DIRECTED CPM-Continuous Passive Motion Machine 1 Ea Device 1 Ea .ROUTE DIRECTED Lovenox Inj (Enoxaparin Sodium) 40 Mg/0.4 Ml Syr 40 Mg SQ DAILY Percocet (Oxycodone-Acetaminophen) 5-325 mg Tab 1-2 Tab PO Q4H PRN Reported Chlorothiazide 250 Mg Tab 250 Mg PO BID Pravastatin 20 Mg Tab 20 Mg PO HS Vitamin B-12 (Cyanocobalamin) 500 Mcg Lozg 2,500 Mcg BUCCAL DAILY Calcium 600 with Vitamin D (Calcium Carbonate-Cholecalciferol) 600-400 mg-Unit Tab 1 Tab PO DAILY Multivitamin Adults (Multiple Vitamins W/ Minerals) 1 Tab 1 Tab PO DAILY Lorazepam 1 Mg Tab 1 Mg PO HS PRN Lexapro (Escitalopram Oxalate) 5 Mg Tab 5 Mg PO HS Lisinopril 10 Mg Tab 10 Mg PO HS Review of Systems Except as stated in HPI: all other systems reviewed are Neg Physical Exam Narrative GENERAL: Well-developed, well-nourished, comfortable, no acute distress. SKIN: Focused skin assessment warm/dry. Right anterior knee with bandage that is clean, dry, intact. HEAD: Atraumatic. Normocephalic. EYES: Pupils equal and round. No scleral icterus. No injection or drainage. ENT: Mucous membranes pink and moist. CARDIOVASCULAR: Regular rate and rhythm. No murmur appreciated. RESPIRATORY: No accessory muscle use. Clear to auscultation. Breath sounds equal bilaterally. GASTROINTESTINAL: Abdomen soft, nondistended, mild left lower quadrant and suprapubic tenderness without peritoneal signs. Normal bowel sounds. No hernias. RECTUM: No masses, no fissures, no hemorrhoids, only a small amount of stool in the rectal vault. MUSCULOSKELETAL: No obvious deformities. No clubbing. No cyanosis. Moderate edema to the right knee/right lower extremity without warmth or erythema. NEUROLOGICAL: Awake and alert. No obvious cranial nerve deficits. Motor grossly within normal limits. Normal speech. PSYCHIATRIC: Appropriate mood and affect; insight and judgment normal. Data Data Last Documented VS Vital Signs Date Time Temp Pulse Resp B/P Pulse Ox O2 Delivery O2 Flow Rate FiO2 05/22/16 19:14 98.5 116 16 127/60 97 Room Air Orders Fleets Enema (Adult) (Fleets Enema (Adul (05/22/16 20:00) Lactulose Liq (Lactulose Liq) (05/22/16 20:00) MDM Medical Decision Making Medical Screen Exam Complete: Yes Emergency Medical Condition: Yes Differential Diagnosis Opioid-induced constipation, bowel obstruction less likely Narrative Course This is a 66-year-old male who is here for evaluation of constipation. The patient had total right knee arthroplasty 5 days ago and was started on Percocet. He has not had a bowel movement since the day before his surgery. His abdominal exam shows some mild suprapubic and left lower quadrant tenderness without peritoneal signs. Rest of his abdomen is soft and nontender. Normal bowel sounds. No hernias. Rectal exam shows only a small amount of stool in the rectal vault without masses. Clinically he is not obstructed. This is most likely opioid-induced constipation. No history of abdominal surgeries. Plan was initially to give him a dose of lactulose as well as a fleets enema here in the emergency Department, however shortly after digital rectal exam, the patient went to the bathroom and had 2 large bowel movements. I'll give him prescription for lactulose. Patient is stable for discharge home. He was informed on when to return to the emergency department. He verbalizes understanding and agreement with plan. Diagnosis Primary Impression: Therapeutic opioid induced constipation Referrals: Primary Care Physician 3 days Additional Instructions: Follow-up with your primary care physician this week. Drink plenty of water. Return to the emergency department for worsening symptoms or any other concerns as discussed. Scripts Lactulose Liq 10 Gm/15 Ml Soln30 Ml PO Q6H PRN (CONSTIPATION) 7 Days Ref 0 Prov:Benoit Montenegro MD 05/22/16 Disposition: 01 DISCHARGE HOME Condition: Stable Benoit Montenegro MD May 22, 2016 20:05 Benoit Montenegro MD May 22, 2016 20:05
[2016-06-03] MEDS ORDERED: ASPI1TAB69 PO (11:51)
== END 2016-05-22 20:53 | disposition home or self-care (01) ==
LOC: NEPE 19:10
DX: K59.03 Drug induced constipation (principal); T40.2X5A Adverse effect of other opioids, initial encounter; R10.32 Left lower quadrant pain; I10 Essential (primary) hypertension; G47.30 Sleep apnea, unspecified; Z96.651 Presence of right artificial knee joint; Z86.59 Personal history of other mental and behavioral disorders; Z87.19 Personal history of other diseases of the digestive system; Z86.711 Personal history of pulmonary embolism; Z87.39 Personal history of other diseases of the musculoskeletal system and connective tissue; Z87.09 Personal history of other diseases of the respiratory system
CPT/HCPCS: 99283

== ENCOUNTER → 2016-06-04 | Day surgery (SDC) | payer MEDICARE, BC ==
[~2016-06-04] VITALS: Ht 190.5 cm; Wt 118.9 kg
[~2016-06-04] MED LIST changes: +ACETAMINOPHEN 1000 MG/100 ML VIAL IV ONE; +ACETAMINOPHEN/CODEINE ELIX 120 MG/12 MG/5 ML CUP PO PRN; +ASPI1TAB69 PO; -ASPI81CH37 CHEW; -BENA25TA3 PO; +BUPIVACAINE HCL PF 0.5% 30 ML VIAL ONE; +CHLORHEXIDINE GLUCONATE 2 % 1 PACK (2 CLOTHS) TOPICAL PRN; +CHLORHEXIDINE GLUCONATE 4% SOLN 120 ML BTL TOPICAL SCH; +CHLORO250 PO; -COMMODE 3-IN-11 MIS; -CPMMACHINE; +DO NOT ADM ANY ANTICOAGULANT DRUGS PRN; -ENOX40P SQ; +INSULIN HUMAN REGULAR 1,000 UNITS/10 ML VIAL SQ PRN; +KETAMINE HCL 500 MG/5 ML VIAL ONE; +KETOROLAC TROMETHAMINE 30 MG/ML (IVP) VIAL IVP ONE; +LACT10SO PO; +LACTATED RINGER'S 1000 ML IV PRN; +METOPROLOL TARTRATE 25 MG TAB PO PRN; +MIDAZOLAM HCL 2 MG/2 ML VIAL ONE; +MORPHINE SULFATE 4 MG/ML INJ IV PUSH PRN; +MULT-65 PO; +ONDANSETRON HCL 4 MG/2 ML VIAL IV PRN; +ONDANSETRON HCL 4 MG/2 ML VIAL IV PUSH ONE; -PERC5TAB12 PO; +POVIDONE IODINE 5% (ANTISEPSIS KIT) 4 APPLICATIONS EACH NARE PRN; +PROPOFOL 200 MG/20 ML AMP IV ONE; +SODIUM CHLORID 0.9% 500 ML IV PRN; +SODIUM CHLORIDE 0.9% FLUSH 10 ML FLUSH IV FLUSH PRN; +SODIUM CHLORIDE 0.9% FLUSH 10 ML FLUSH IV FLUSH SCH; +VANCOMYCIN 1000 MG/NS 250 ML (for <70 kg) IV SCH; +VITA500S3 SL; -WALKER WHEELS/F1 MIS; +ceFAZolin 2 GM PREMIX 50 ML IV SCH
[2016-06-04 11:02] VITALS: BP 146/80; PULSE 73; RESP 18; TEMP 98.8; O2SAT 96
--- NOTE | 2016-06-04 14:21 | PD.OP ---
cc: Tavon Arroyo Jr., MD Operative Report Date of Surgery: Jun 04, 2016 Preoperative Diagnosis: right ringer trigger finger Postoperative Diagnosis: Same Procedure: Right ring A1 mana trigger finger release Anesthesia: Gen. Surgeon: Tavon Arroyo Grain Trader(s): Staff Resident Surgeon: None Operation and Findings: Patient was seen and evaluated preoperatively and found to have a debilitating and painful trigger finger at the right ring finger, that has so far failed nonoperative treatment. Informed consent was obtained after detailed discussion of risk and benefits including bleeding, infection, injury to arteries, nerves, and blood vessels, weakness and numbness of hand, and tendon rupture. Informed consent was obtained. Patient received IV antibiotics prior to incision. Timeout procedure was performed. Operative extremity was prepped with alcohol followed by Hibiclens and draped usual sterile fashion. A 1 cm long transverse/ vertical incision was made with the proximal palmar crease and carried by sharp dissection through the subcutaneous tissue. Blunt dissection was used to expose the flexor tendon and the proximal edge of the A1 mana. Using a #11 knife blade, the A1 mana was incised from proximal to distal. The finger was then put through a full range of motion with no triggering and I could see the hyperthrophic bump on the flexor tendon appear and disappear, and there was no triggering. The wound was irrigated copiously with normal saline and the incision closed with 4 interrupted simple sutures of 2-0 nylon. A sterile pressure dressing was placed over the hand, and the tourniquet was deflated. The patient was awakened and returned to recovery in apparently good condition. Tourniquet time was 9 minutes. POSTP-OP PLAN OF ACTIVITY Antibiotics: none Antiocoagulation: none Weight bearing status: WBAT Dressing: Do not remove until outpatient clinic visit Dispo: expected discharge TODAY home from PACU Tavon Arroyo Jr., MD Jun 04, 2016 14:21
[2016-06-04 15:55] VITALS: BP 144/74; PULSE 62; RESP 18; TEMP 97.7; O2SAT 98
== END | disposition home or self-care (01) ==
LOC: HSDC 10:10
PROVIDERS: ATTEND Orthopaedic Surgery
DX: M65.341 Trigger finger, right ring finger (principal); I10 Essential (primary) hypertension; F41.9 Anxiety disorder, unspecified
CPT/HCPCS: 01810; 26055; 86850; 86900; 86901; J0131; J0690; J2250; J2405; J3010; J3370; J7050; J7120

== ENCOUNTER 2016-07-20 07:26 | Day surgery (SDC) | payer MEDICARE, BC ==
[~2016-07-20] VITALS: Ht 190.5 cm; Wt 118.2 kg
[~2016-07-20 07:26] MED LIST changes: -ACETAMINOPHEN 1000 MG/100 ML VIAL IV ONE; -ACETAMINOPHEN/CODEINE ELIX 120 MG/12 MG/5 ML CUP PO PRN; -BUPIVACAINE HCL PF 0.5% 30 ML VIAL ONE; -CHLORHEXIDINE GLUCONATE 2 % 1 PACK (2 CLOTHS) TOPICAL PRN; -CHLORHEXIDINE GLUCONATE 4% SOLN 120 ML BTL TOPICAL SCH; -DO NOT ADM ANY ANTICOAGULANT DRUGS PRN; -INSULIN HUMAN REGULAR 1,000 UNITS/10 ML VIAL SQ PRN; -KETAMINE HCL 500 MG/5 ML VIAL ONE; -KETOROLAC TROMETHAMINE 30 MG/ML (IVP) VIAL IVP ONE; -LACT10SO PO; -LACTATED RINGER'S 1000 ML IV PRN; -METOPROLOL TARTRATE 25 MG TAB PO PRN; -MIDAZOLAM HCL 2 MG/2 ML VIAL ONE; -MORPHINE SULFATE 4 MG/ML INJ IV PUSH PRN; -MULT-65 PO; -ONDANSETRON HCL 4 MG/2 ML VIAL IV PRN; -ONDANSETRON HCL 4 MG/2 ML VIAL IV PUSH ONE; -POVIDONE IODINE 5% (ANTISEPSIS KIT) 4 APPLICATIONS EACH NARE PRN; -PROPOFOL 200 MG/20 ML AMP IV ONE; -SODIUM CHLORID 0.9% 500 ML IV PRN; -SODIUM CHLORIDE 0.9% FLUSH 10 ML FLUSH IV FLUSH PRN; -SODIUM CHLORIDE 0.9% FLUSH 10 ML FLUSH IV FLUSH SCH; -VANCOMYCIN 1000 MG/NS 250 ML (for <70 kg) IV SCH; -VITA500S3 SL; -ceFAZolin 2 GM PREMIX 50 ML IV SCH
[2016-07-20 07:43] VITALS: BP 149/81; PULSE 70; RESP 20; TEMP 98.3; O2SAT 94
[2016-07-20] MEDS ORDERED: VITA500S3 SL (07:48)
[2016-07-20] MEDS ORDERED: MULT-65 PO (07:48)
[2016-07-20] MEDS ORDERED: SODIUM CHLORIDE 0.9% 1000 ML IV SCH (08:15)
[2016-07-20 08:17] LABS: APTT (PATIENT) 27.7 SEC (24.3-30.1)
[2016-07-20 08:18] LABS: AUTOMATED NEUTROPHIL # 4.8 TH/MM3 (1.8-7.7); BASOPHIL % 0.4 % (0.0-2.0); EOSINOPHIL # 0.1 TH/MM3 (0-0.4); EOSINOPHIL % 1.5 % (0.0-4.0); HEMATOCRIT 38.3 % (39.0-51.0); HEMO FLAGS DIFF FINAL; LYMPHOCYTE # 2.2 TH/MM3 (1.0-4.8); MEAN CELL VOLUME 85.1 FL (80.0-100.0); MEAN CORPUSCULAR HEMOGLOBIN 27.5 PG (27.0-34.0); MEAN CORPUSCULAR HGB CONC 32.4 % (32.0-36.0); MONO % 9.2 % (0.0-8.0); NEUT % 60.9 % (16.0-70.0); PLATELET COUNT 325 TH/MM3 (150-450); WHITE BLOOD COUNT 7.9 TH/MM3 (4.0-11.0)
[2016-07-20] MEDS ORDERED: fentaNYL CITRATE 250 MCG/5 ML AMP ONE (09:35)
[2016-07-20] MEDS ORDERED: MIDAZOLAM HCL 5 MG/5 ML VIAL ONE (09:35)
--- NOTE | 2016-07-20 10:08 | PD.RAD ---
Post Procedure Progress Note Pre Procedure Diagnosis: (1) At moderate risk for deep venous thrombosis (2) Presence of IVC filter Post Procedure Diagnosis: (1) At moderate risk for deep venous thrombosis (2) Presence of IVC filter Procedure Date: Jul 20, 2016 Supervising Radiologist: Arnold Curtis Proceduralist/Assist: Amanda Navarro, RT(R), Lawanda Maynard RT(R) Estimated blood loss: <10 ml Plan of Activity Patient to Unit: ROPU Patient Condition: Good Additional Comments: IVC filter removed. Intact. No thrombus. See PACS Report for procedural detail/treatment Arnold Curtis MD Jul 20, 2016 10:08
[2016-07-20] MEDS ORDERED: IOHEXOL 350 MG/ML 50 ML BTL (for RAD DIAG) IV ONE (10:16)
[2016-07-20 10:20] VITALS: BP 130/75; PULSE 56; RESP 16; TEMP 98.1; O2SAT 93
[2016-07-20 10:35] VITALS: BP 161/68; PULSE 63; RESP 18; O2SAT 94
[2016-07-20 11:05] VITALS: BP 129/74; PULSE 55; RESP 18; O2SAT 92
[2016-07-20 11:35] VITALS: BP 130/74; PULSE 58; RESP 16; O2SAT 93
--- NOTE | 2016-07-20 12:03 | RADRPT ---
EXAM DATE/TIME: 07/20/2016 09:51 [facility] COMPARISON: No previous studies available for comparison. INDICATIONS : History of perioperative IVC filter placement due to significant history of DVT and pulmonary embolus . Patient is now postoperative and able to resume anticoagulation. Therefore, filter removal has been requested. MEDICAL HISTORY : HTN, Anemia, DVT, Sleep apnea, GERD SURGICAL HISTORY : Left femoral repair, Left hip surgery, Right total knee replacement, Bilateral elbow surgery ENCOUNTER: Subsequent ACUITY: 2 months PAIN SCORE: 0/10 FLUORO TIME: 3 minutes IMAGE SERIES: 2 ACCESS SITE: Right Internal jugular vein SEDATION TIME: 30 minutes CONTRAST: 1.) 20 cc Omnipaque (iohexol) 350 MEDICATION(S): 1.) 3 mg midazolam (Versed) IV 2.) 150 mcg fentanyl (Sublimaze) IV DEVICE(S): 1.) Inferior vena cava 20MM Bard Snare Retrieval Kit PROCEDURE : 1. Ultrasound-guided venipuncture. 2. Inferior venacavogram.retrieval. 4. Conscious sedation with continuous EKG and oximetry monitoring. The risks, benefits and alternatives to the procedure were explained and verbal and written consent w as obtained. The site was prepped in sterile fashion. Full sterile technique was used, including ca p, mask, sterile gloves and gown and a large sterile sheet. Hand hygiene and 2% chlorhexidine and/or betadine/alcohol prep was utilized per protocol for cutaneous antisepsis. The skin and subcutaneous tissues were infiltrated with local anesthetic solution. With ultrasound and fluoroscopic guidance the targeted vein was punctured and a vascular sheath was p laced. Inferior venacavogram was performed. This demonstrated a well-positioned filter. No evidence f or iliac or caval thrombus. Therefore, a recovery 9 [place] sheath was placed and the filter was captu red with a 20 mm snare and removed through the sheath. The filter was examined and noted to be fairly intact. Next, cavogram was performed through the sheath in the distal IVC. This demonstrated no evid ence for extravasation or other caval abnormality. Sheath was therefore removed and hemostasis obtain ed at the puncture site with manual compression. Conscious sedation was performed with the prescribed dosages and duration as above in the presence of an independent trained radiology nurse to assist in the monitoring of the patient. EKG and oximetry remained stable throughout the procedure. The patient tolerated the procedure well and there were n o complications. The patient was sent to post anesthesia recovery in stable condition. CONCLUSION: Uncomplicated inferior vena cava filter retrieval as above. Arnold Curtis MD on July 20, 2016 at 10:42 Board Certified Radiologist. This report was verified electronically.
== END 2016-07-20 11:55 | disposition home or self-care (01) ==
LOC: HROP 07:26 → HRIP 07:27 → HROP 11:55
PROVIDERS: ATTEND Family Medicine
DX: I82.509 Chronic embolism and thrombosis of unspecified deep veins of unspecified lower extremity (principal); I26.99 Other pulmonary embolism without acute cor pulmonale; I10 Essential (primary) hypertension; D64.9 Anemia, unspecified; G47.30 Sleep apnea, unspecified; K21.9 Gastro-esophageal reflux disease without esophagitis; Z96.651 Presence of right artificial knee joint; Z01.818 Encounter for other preprocedural examination
CPT/HCPCS: 37191; 85025; 85610; 85730; 99152; 99153; C1769; C1773; C1894; J2250; J3010; J7030; Q9967

== ENCOUNTER 2016-11-08 15:35 | Emergency (ER) | payer MEDICARE, BC ==
[~2016-11-08 15:35] MED LIST changes: -ASPI1TAB69 PO; -CHLORO250 PO; +MULT-65 PO; -MULT1TAB84 PO; -VITA500L BUCCAL; +VITA500S3 SL
[2016-11-08 15:36] VITALS: BP 151/72; PULSE 73; RESP 16; TEMP 98; O2SAT 97
--- NOTE | 2016-11-08 15:56 | PD ---
Physical Exam Time Seen by Provider: 15:54 Narrative 66 year old male presents for evaluation after a trip and fall 3 days ago. Pt landed directly on his chest and "the wind was knocked out of him." Did not hit or lose consciousness. Generalized chest pain, but worse on right. Exacerbated with deep inspiration. No shortness of breath. Data Data Last Documented VS Vital Signs Date Time Temp Pulse Resp B/P (MAP) Pulse Ox O2 Delivery O2 Flow Rate FiO2 11/08/16 17:47 11/08/16 15:36 98.0 73 16 97 Room Air Orders Orders Chest, Pa & Lat (11/08/16 ) Ketorolac Inj (Toradol Inj) (11/08/16 17:15) MDM Medical Record Reviewed: Yes Supervised Visit with FARZANA: No Scripts Lidocaine Patch 12 HR (Lidocaine Patch 12 HR) 5 % Patch 1 PATCH TOPICAL DAILY Y for PAIN, #1 BOX 1 Refill Remove patch after 12 hours Prov: Brianna Cortés DO 11/08/16 Ibuprofen (Ibuprofen) 800 Mg Tab 800 MG PO Q6HR Y for PAIN, #40 TAB 0 Refills Prov: Brianna Cortés DO 11/08/16 Condition: Stable Agustina Chatman Nov 08, 2016 15:56
--- NOTE | 2016-11-08 16:16 | RADRPT ---
EXAM DATE/TIME: 11/08/2016 16:09 [facility] COMPARISON: CHEST PA & LAT, April 30, 2016, 9:54. INDICATIONS : Chest pain today with exertion. MEDICAL HISTORY : None. SURGICAL HISTORY : None. ENCOUNTER: Initial ACUITY: 1 day PAIN SCORE: 6/10 LOCATION: Bilateral chest FINDINGS: PA and lateral views of the chest demonstrate the lungs to be symmetrically aerated without evidence of mass, infiltrate or effusion. The cardiomediastinal contours are unremarkable. Osseous structure s are intact. CONCLUSION: 1. No acute cardiopulmonary disease. Arnold Curtis MD on November 08, 2016 at 16:13 Board Certified Radiologist. This report was verified electronically.
[2016-11-08] MEDS ORDERED: KETOROLAC TROMETHAMINE 60 MG/2 ML (IM) VIAL IM ONE (17:15)
[2016-11-08] MEDS ORDERED: IBUP800T23 PO (17:19)
[2016-11-08] MEDS ORDERED: LIDO1PAD52 TOPICAL (17:19)
--- NOTE | 2016-11-08 17:22 | PD ---
HPI Chief Complaint: Musculoskeletal Complaint Time Seen by Provider: 17:18 Travel History International Travel<30 days: No Contact w/Intl Traveler<30days: No Traveled to known affect area: No History of Present Illness HPI 66-year-old male presents for evaluation after a mechanical fall. He reports that 3 days ago he tripped in his yard and fell, landing on his rib cage. He has been having some mild anterior right-sided rib cage pain since then. The pain is an aching pain which is worse with movement, coughing, sneezing, inspiration. He denies any hemoptysis, shortness of breath, nausea or vomiting , abdominal pain, neck or back pain. He has been using Tylenol for his pain. He has no other complaints at this time. PFSH Past Medical History Arthritis: No Asthma: No Autoimmune Disease: No Anxiety: Yes Depression: Yes Heart Rhythm Problems: No Cancer: No Cardiovascular Problems: No High Cholesterol: No Chemotherapy: No Chest Pain: Yes (multiple times due to anxiety) Congestive Heart Failure: No COPD: No Cerebrovascular Accident: No Diabetes: No Diminished Hearing: No Endocrine: No Gastrointestinal Disorders: Yes (OCCASIONAL GERD) GERD: No Genitourinary: No Hepatitis: No Hiatal Hernia: No Hypertension: Yes Immune Disorder: No Kidney Stones: No Musculoskeletal: Yes (ARTHRITIS) Neurologic: No Psychiatric: Yes (GENERALIZED ANXIETY DISORDER) Reproductive: No Respiratory: Yes (SLEEP APNEA--NO CPAP, HX PE) Immunizations Current: Yes Migraines: No Radiation Therapy: No Renal Failure: No Seizures: No Sickle Cell Disease: No Sleep Apnea: Yes Thyroid Disease: No Ulcer: No Past Surgical History Abdominal Surgery: No AICD: No Arteriovenous Shunt: No Body Medical Devices: LEFT FEMUR FLORIDALMA AND SCREWS, PIN LEFT HAND, IVC FILTER Cardiac Surgery: No Ear Surgery: No Endocrine Surgery: No Eye Surgery: No Genitourinary Surgery: No Gynecologic Surgery: No Insulin Pump: No Joint Replacement: Yes (right total knee) Oral Surgery: No Pacemaker: No Thoracic Surgery: No Social History Alcohol Use: No Tobacco Use: No (never) Substance Use: No Allergies-Medications (Allergen,Severity, Reaction): Coded Allergies: No Known Allergies (Unverified , 07/20/16) Reported Meds & Prescriptions Reported Meds & Active Scripts Active Reported Multi-Vitamin Daily (Multiple Vitamin) 1 Tab Tab 1 Tab PO DAILY Vitamin B-12 (Cyanocobalamin) 500 Mcg Subl 2,500 Mcg SL DAILY Pravastatin 20 Mg Tab 20 Mg PO HS Calcium 600 with Vitamin D (Calcium Carbonate-Cholecalciferol) 600-400 mg-Unit Tab 1 Tab PO DAILY Lorazepam 1 Mg Tab 1 Mg PO HS PRN Lexapro (Escitalopram Oxalate) 5 Mg Tab 5 Mg PO HS Lisinopril 10 Mg Tab 10 Mg PO HS Review of Systems Except as stated in HPI: all other systems reviewed are Neg Physical Exam Narrative GENERAL: Well-developed well-nourished male in no acute distress SKIN: Warm and dry. Bruising or soft tissue swelling, no open wounds HEAD: Atraumatic. Normocephalic. EYES: Pupils equal and round. No scleral icterus. No injection or drainage. ENT: No nasal bleeding or discharge. Mucous membranes pink and moist. NECK: Trachea midline. No JVD. CARDIOVASCULAR: Regular rate and rhythm. No murmur appreciated. RESPIRATORY: No accessory muscle use. Clear to auscultation. Breath sounds equal bilaterally. GASTROINTESTINAL: Abdomen soft, non-tender, nondistended. Hepatic and splenic margins not palpable. MUSCULOSKELETAL: No obvious deformities. There is some tenderness to palpation to the right lower rib cage, no bony crepitus. No tenderness to palpation along the neck or back. NEUROLOGICAL: Awake and alert. No obvious cranial nerve deficits. Motor grossly within normal limits. Normal speech. PSYCHIATRIC: Appropriate mood and affect; insight and judgment normal. Data Data Last Documented VS Vital Signs Date Time Temp Pulse Resp B/P (MAP) Pulse Ox O2 Delivery O2 Flow Rate FiO2 11/08/16 15:36 98.0 73 16 151/72 (98) 97 Room Air Orders Orders Chest, Pa & Lat (11/08/16 ) Ketorolac Inj (Toradol Inj) (11/08/16 17:15) [facility] Medical Decision Making Medical Screen Exam Complete: Yes Emergency Medical Condition: Yes Medical Record Reviewed: Yes Differential Diagnosis Contusion, abrasion, fracture, pneumothorax, hemothorax Narrative Course 66-year-old male presents with mild anterior right-sided rib cage pain after mechanical fall 3 days ago. Physical examination is reassuring. X-ray imaging of the chest ordered in triage were unremarkable. The patient appears to have a chest wall contusion. He is being discharged with a short course of ibuprofen and Lidoderm patches. Diagnosis Primary Impression: Chest wall contusion Qualified Codes: S20.211A - Contusion of right front wall of thorax, initial encounter Additional Instructions: Medication as needed. Take ibuprofen with meals. Follow-up with primary care physician as needed and return for any emergent medical conditions. Med/Other Pt SpecificInfo: Prescription(s) given Scripts Lidocaine Patch 12 HR (Lidocaine Patch 12 HR) 5 % Patch 1 PATCH TOPICAL DAILY Y for PAIN, #1 BOX 1 Refill Remove patch after 12 hours Prov: Brianna Cortés DO 11/08/16 Ibuprofen (Ibuprofen) 800 Mg Tab 800 MG PO Q6HR Y for PAIN, #40 TAB 0 Refills Prov: Brianna Cortés DO 11/08/16 Disposition: 01 DISCHARGE HOME Condition: Stable Fermin Alves Nov 08, 2016 17:22
== END 2016-11-08 17:49 | disposition home or self-care (01) ==
LOC: NEPK 15:35
DX: S20.211A Contusion of right front wall of thorax, initial encounter (principal); F32.9 Major depressive disorder, single episode, unspecified; K21.9 Gastro-esophageal reflux disease without esophagitis; I10 Essential (primary) hypertension; M19.90 Unspecified osteoarthritis, unspecified site; F41.1 Generalized anxiety disorder; W01.0XXA Fall on same level from slipping, tripping and stumbling without subsequent striking against object, initial encounter; Z79.899 Other long term (current) drug therapy
CPT/HCPCS: 71020; 96372; 99284; J1885

== ENCOUNTER 2017-12-19 05:48 | Inpatient (IN) ==
[2017-12-19] MEDS ORDERED: Chlorhexidine 4% Topical 120 APPLIC/120 ML Bottle TOPICAL SCH (06:45)
[2017-12-19] MEDS ORDERED: LORazepam 1 MG Tablet PO PRN (06:50)
[2017-12-19] MEDS ORDERED: Post-op Orders (for Pharmacy) OTHER STA (06:51)
[2017-12-19] MEDS ORDERED: Bisacodyl 10 MG Supp RECTAL PRN (06:51)
[2017-12-19] MEDS ORDERED: HYDROmorphone PF Inj 1 MG/ML Ampul IV.PUSH PRN (06:51)
[2017-12-19] MEDS ORDERED: Chlorhexidine Gluconate 2% 1 Pack (2 Cloths) TOPICAL ONE (06:53)
[2017-12-19] MEDS ORDERED: Metoprolol Tartrate 25 MG Tablet PO ONE (06:53)
[2017-12-19] MEDS ORDERED: Vancomycin Inj 1,000 MG in Sodium Chlor 0.9% Inj 250 ML IV.SIG SCH (07:00)
[2017-12-19] MEDS ORDERED: ceFAZolin 2 GM Premix Inj 2 GM/50 ML PIGGYBACK IV.SIG SCH (07:00)
[2017-12-19] MEDS ORDERED: Sodium Chlor 0.9% Inj 500 ML IV.SIG SCH (07:00)
[2017-12-19] MEDS ORDERED: Bupivacaine Liposomal PF 1.3% Inj 20 ML Vial ONE (07:01)
[2017-12-19] MEDS ORDERED: Dexamethasone Inj 20 MG/5 ML Vial ONE (07:06)
[2017-12-19] MEDS ORDERED: Neostigmine Inj 5 MG/5 ML Syringe IV.PUSH ONE (08:10)
[2017-12-19] MEDS ORDERED: Lidocaine PF 1% Inj 5 ML Syringe OTHER ONE (08:10)
[2017-12-19] MEDS ORDERED: Glycopyrrolate Inj 1 MG/5 ML Syringe IV.PUSH ONE (08:10)
[2017-12-19] MEDS ORDERED: Sodium Chlor 0.9% Inj 73.07 ML, Ropivacaine 0.5% PF Inj 24.63 ML, Ketorolac Inj 30 MG, ... P-ARTICULR SCH ×5 (08:30)
[2017-12-19] MEDS ORDERED: SODIUM CHLOR 0.9% IV.SIG SCH (08:30)
[2017-12-19] MEDS ORDERED: TRANEXAMIC ACID IV.SIG SCH (08:30)
[2017-12-19] MEDS ORDERED: Sodium Chlor 0.9% Inj 100 ML, Tranexamic Acid Inj 3,000 MG P-ARTICULR SCH ×2 (08:30)
[2017-12-19] MEDS ORDERED: fentaNYL Citrate Inj 100 MCG/2 ML Ampul ONE (10:38)
[2017-12-19] MEDS ORDERED: Morphine Inj 4 MG/ML Vial ONE (10:38)
[2017-12-19] MEDS: Senna/Docusate Sodium 8.6/50 MG Tablet PO SCH ×2 (10:44→20:53)
[2017-12-19] MEDS ORDERED: *morphine SULFATE 4 MG/ML PERIprocedure ONLY ONE ×2 (10:46→11:14)
--- NOTE | 2017-12-19 11:17 | XR ---
EXAM DATE: 12/19/2017 11:09 AM EST AGE/SEX: 67 years / Male INDICATIONS: Post-op left knee. CLINICAL DATA: This is the patient's initial encounter. Patient reports that signs and symptoms have been present for 1 day and indicates a pain score of Nonresponsive. MEDICAL/SURGICAL HISTORY: Non-responsive. Non-responsive. COMPARISON: [facility] [place], KNEE RIGHT LTD (1 OR 2 VWS), 05/17/2016. . FINDINGS: AP and lateral views of the knee following arthroplasty reveals a prosthesis in anatomic alignment. F racture is not appreciated. Intramedullary jared is noted. There is no surgical drain. Air is present i n the joint. CONCLUSION: Status post total knee arthroplasty. Pastor Gray MD FACR Electronically signed by: Pastor Gray MD 12/19/2017 11:16 AM EST
--- NOTE | 2017-12-19 13:44 | MP ---
cc: Evaristo Urrutia MD DATE OF OPERATION: 12/19/2017 PREOPERATIVE DIAGNOSIS: Left knee osteoarthritis. POSTOPERATIVE DIAGNOSIS: Left knee osteoarthritis. PROCEDURE: Left total knee arthroplasty. SURGEON: Evaristo Urrutia MD. RN CLINICIAN: DONNIE Marquez. ANESTHESIA: General. ESTIMATED BLOOD LOSS: 150 mL. TOURNIQUET TIME: 33 minutes at 250 mmHg. COMPLICATIONS: None. IMPLANTS USED: DePuy Attune size 9 posterior stabilized femoral component, size 10 rotating platform tibial baseplate, size 5 mm polyethylene tibial insert, size 41 patella. INDICATIONS: The patient is a 67-year-old male with history of severe osteoarthritis involving the left knee joint. He has severe disabling pain with standing, walking, ambulation with activities, and severe pain with rest. He has failed greater than 3 months of nonoperative conservative treatment to include medication therapy, injections ambulatory assistive aids, home exercise program, activity modification, and weight loss. X-rays of the left knee reveal severe osteoarthritis with joint space narrowing, subchondral sclerosis, subchondral cyst, osteophyte formation with subluxation and deformity. The patient was counseled as to the risks, benefits and alternatives to a total knee arthroplasty. The risks were discussed, which included, but are not limited to anesthesia, bleeding, infection, damage to nerves and blood vessels, pain, stiffness, failure of components, blood clots, pulmonary embolus, and even . The patient's pain is severe. He favors the benefits over the risks and he did wish to proceed with surgery. PROCEDURE IN DETAIL: Written consent was obtained. The patient was identified by name, taken to the operating room and placed supine on the table. General anesthesia was administered, as well as 2 grams of IV Ancef and 1 gram IV vancomycin. A well-padded tourniquet was placed on the left thigh. The left lower extremity prepped and draped using isopropyl alcohol, Hibiclens solution, and ChloraPrep solution. After a timeout was performed, Esmarch bandage was used to exsanguinate the left lower extremity and tourniquet inflated to 200 mmHg. An longitudinal incision was made over the anterior aspect of the left knee. A medial parapatellar arthrotomy was performed. The patella was everted. A patellar resection guide was used to resect 9 mm of the patella. The size 41 mm guide was placed. Three drill holes were placed and the 41 mm trial fit well. Attention was turned to the femur where an intramedullary guide was placed and the distal femoral guide was set to remove 11 mm of distal femur, 5 degrees off the anatomic valgus axis alignment. An oscillating saw was used to perform the distal femoral cut. Attention was turned to the tibia where an extramedullary tibial guide was set to remove 6 mm off the lowest portion of the medial tibial plateau. A tibial guide was pinned in place. The tibial cut was performed. A 5 mm spacer block showed full extension. Attention was turned back to the femur. AP sizer marked and measured size 9. The anterior reference 3-degree external rotation guide was used to pin a size [address]. Anterior, posterior chamfer cuts were performed. Size 9 PCL box cut pin was placed and the PCL was box cut with an oscillating saw. The medial and lateral meniscus remnants were removed, as well as bone and soft tissue debris from the posterior portion of the knee. A size 10 tibial base plate was pinned in place and the tibia was drilled and punch. Trial components were evaluated and final components cemented in place. With the current components, the leg could achieve full extension to 0 degrees and flexion to 140. No evidence of tibial liftoff. Varus valgus balance appeared appropriate and symmetric, and the patella was noted to tracks centrally. With the tourniquet deflated, Bovie cautery was used for hemostasis. The surgical wound was thoroughly irrigated with sterile saline and Pulsavac antibiotic impregnated solution. The arthrotomy incision was closed with #1 Vicryl suture, subcutaneous layer with 2-0 Vicryl suture. Skin was closed with Dermabond. Sterile dressing was applied. He tolerated the procedure well. No intraoperative complications noted. Wally Tee, Physician Combatant Diver Officer-Certified was present during the entire procedure to include patient positioning and the procedure, itself. The medical necessity of physician data analysis assistant was indicated in this case due to the complexity of the procedure. He assisted appropriate manipulation of the leg and also retraction of muscle, tendon, bone, and neurovascular structures. He assisted with preparation of bone and also implantation of the prosthetic replacement. MD JASMIN Ramirez/megan , 09:59 AM , 10:08 AM
--- NOTE | 2017-12-19 16:20 | P.CON ---
History of Present Illness Service: [facility] Consult date: 12/19/17 Requesting Physician: Evaristo Urrutia Reason for Consult: Medical management Primary Care Provider: Edward Cazares MD Chief Complaint: "Nausea" History of Present Illness: Patient is 67-year-old male with past medical history of HTN, HLD, MELLY, blood dyscrasia who came in for elective surgery secondary to Left knee osteoarthritis. Patient is status post total left knee surgery by Dr. Urrutia. Consulted for assistance with medical management. Patient seen and examined today. States he is doing well. States that he had his right knee done prior years. States that he has an old IVC filter that has been taken out years ago. States that he had IVC filter placement last Tuesday because he is prone to DVTs. Patient states that he was able to walk towards the bathroom to void. States he became nauseous and requesting for antinausea medication. Otherwise, denies pain and discomfort. Denies SOB/ dyspnea. Denies chest pain, palpitations, headaches, dizziness. Denies fevers, chills, v/ d. Denies dysuria. Denies numbness or tingling sensation, unilateral weakness. Review of Systems All other systems reviewed negative except as stated in HPI PMFSH - History History Provided By: Patient - Medical History Medical History: Medical History (Last Reviewed 12/19/17 @ 16:39 by SAMIA Zeng) Anxiety Asthma Blood dyscrasia Claustrophobia GERD (gastroesophageal reflux disease) High cholesterol History of fracture of left hip Hypertension Pain in left knee Sleep apnea Wears dentures Wears glasses - Surgical History Surgical History: Surgical History (Last Updated 12/19/17 @ 16:40 by SAMIA Zeng) H/O shoulder surgery History of left hip replacement History of arthroscopy of left knee History of decompression of both ulnar nerves History of total right knee replacement (TKR) Hx of right knee surgery - Family History Family History: Family History (Last Updated 12/19/17 @ 16:40 by SAMIA Zeng) Other Parents - Social History I have reviewed the patient's Social History: Yes - Tobacco History Second Hand Smoke Exposure: Yes Smoking Status: Never smoker - Alcohol History How Often Do You Have a Drink Containing Alcohol: Never - Substance Use History Substance History: No History of Abuse Medications and Allergies Active Medications: Active Medications Hydrocodone Bitart/Acetaminophen ([place] 7.5/325) 1 tab PO Q4H PRN PRN Reason: PAIN LESS THAN 5 ON SCALE Last Admin: 12/19/17 12:41 Dose: 1 tab Hydrocodone Bitart/Acetaminophen ([place] 7.5/325) 2 tab PO Q6H PRN PRN Reason: PAIN SCALE 5 TO 10 Al Hydroxide/Mg Hydroxide (Milk Of Magnesia Liq) 30 ml PO BID PRN PRN Reason: Mild Constipation Aspirin (Aspirin Chew) 81 mg PO BID LEEANN Bisacodyl (Dulcolax Supp) 10 mg RECTAL DAILY PRN PRN Reason: SEVERE CONSITIPATION Chlorhexidine Gluconate (Hibiclens 4% Topical) 1 applicatio TOPICAL ONCE [facility] Stop: 12/23/17 06:44 Diphenhydramine HCl (Benadryl) 25 mg PO Q6H PRN PRN Reason: ITCHING Hydromorphone HCl (Dilaudid Pf Inj) 1 mg IV.PUSH Q3H PRN PRN Reason: BREAKTHROUGH PAIN Vancomycin HCl 1,000 mg/ (Sodium Chloride) 250 mls @ 250 mls/hr IV.SIG SENIOR ACCOUNTING ANALYST [facility] Stop: 12/22/17 06:41 Last Infusion: 12/19/17 09:12 Dose: Infused Cefazolin Sodium/Dextrose (Ancef 2 Gm Premix Inj) 2 gm in 50 mls @ 100 mls/hr IV.SIG Q6H [facility] Stop: 12/20/17 03:29 Lactated Ringer's (Lr 1000 Ml Inj) 1,000 mls @ 80 mls/hr IV.CONT .[id number] [facility] Last Admin: 12/19/17 10:43 Dose: 80 mls/hr Lactated Ringer's (Lr 1000 Ml Inj) 1,000 mls @ 30 mls/hr IV.SIG .Q24H [facility] Stop: 12/20/17 06:59 Last Infusion: 12/19/17 09:50 Dose: Infused Sodium Chloride (Ns Inj) 500 mls @ 30 mls/hr IV.SIG .Q10H [facility] Lactulose (Lactulose Liq) 30 ml PO DAILY PRN PRN Reason: SEVERE CONSITIPATION Lisinopril (Prinivil) 10 mg PO HS LEEANN Lorazepam (Ativan) 1 mg PO HS PRN PRN Reason: Anxiety Miscellaneous Information (Mis Nursing Information) 0 each OTHER UNSCH PRN PRN Reason: SEE LABEL COMMENTS Stop: 12/20/17 10:24 Multivitamins/Minerals (Theragran-M) 1 tab PO BID [facility] Stop: 02/17/18 20:59 Ondansetron HCl (Zofran Inj) 4 mg IV.PUSH Q6H PRN PRN Reason: NAUSEA OR VOMITING Povidone Iodine (Betadine 7.5% Scrub) 1 applicatio TOPICAL ONCE [facility] Stop: 12/23/17 06:59 Pravastatin Sodium (Pravachol) 40 mg PO HS [facility] Senna/Docusate Sodium (Monique-Colace) 1 tab PO BID [facility] Last Admin: 12/19/17 10:44 Dose: Not Given Sennosides (Senokot) 17.2 mg PO BID PRN PRN Reason: Moderate Constipation Sodium Chloride (Ns Flush) 2 ml IV.FLUSH BID [facility] Last Admin: 12/19/17 10:44 Dose: Not Given Sodium Chloride (Ns Flush) 2 ml IV.FLUSH PRN PRN PRN Reason: FLUSH AFTER USING IV ACCESS Zolpidem Tartrate (Ambien) 5 mg PO HS PRN PRN Reason: INSOMNIA Allergies Allergy/AdvReac Type Severity Reaction Status Date / Time No Known Allergies Allergy Verified 12/19/17 07:06 Home Medications Medication Instructions Recorded Confirmed Type calcium carbonate-vitamin D3 1 tab PO DAILY 12/01/17 12/19/17 History [Calcium 500 + D (D3)] escitalopram oxalate 5 mg PO HS 12/01/17 12/19/17 History lisinopril 10 mg PO HS 12/01/17 12/19/17 History sfkaczfaftab-roo-frcy-FA-vit K 1 tab PO DAILY 12/01/17 12/19/17 History [Adults Multivitamin] pravastatin 40 mg PO HS 12/01/17 12/19/17 History Physical Exam Vital signs: Vital Signs 12/19/17 07:05 12/19/17 07:53 12/19/17 10:25 Temperature 98.1 F 97.8 F Pulse Rate 58 L 57 L 66 Respiratory Rate 20 20 Blood Pressure 122/71 124/61 Pulse Oximetry 96 97 94 L 12/19/17 10:40 11/12/18 10:53 12/19/17 11:09 Temperature 97.5 F L Pulse Rate 62 57 L 58 L Respiratory Rate 18 18 16 Blood Pressure 121/61 130/67 122/58 L Pulse Oximetry 94 L 94 L 96 12/19/17 13:11 Temperature 98.2 F Pulse Rate 78 Respiratory Rate 18 Blood Pressure 135/63 Pulse Oximetry 94 L Intake & Output 12/18/17 12/19/17 12/19/17 18:59 06:59 18:59 Intake Total 2418.795 / 2418.795 Output Total 150 / 150 Balance 2268.795 / 2268.795 Weight 125.3 kg Intake: IV 1418.795 / 1418.795 LR 1000 mL Inj 1,000 ML @ 30 1000 / 1000 mls/hr IV.SIG .Q24H LEEANN Rx#: [id number] Cyklokapron Inj 1,879.5 MG In 118.795 / 118.795 NS Inj 100 ML @ 200 mls/hr IV. SIG ONCE LEEANN Rx#:[id number] Vancomycin Inj 1,000 MG In NS 250 / 250 Inj 250 ML @ 250 mls/hr IV.SIG SENIOR ACCOUNTING ANALYST LEEANN Rx#:[id number] Ancef 2 GM Premix Inj 2 gm In 50 / 50 50 ml @ 100 mls/hr IV.SIG SENIOR ACCOUNTING ANALYST LEEANN Rx#:[id number] Anesthesia Amount 1000 / 1000 Output: Estimated Blood Loss 150 / 150 Other: Weight On Admission 125.3 kg Narrative: GENERAL: This is a well-nourished, well-developed patient, in no apparent distress. SKIN: Warm and dry. HEENT: Normocephalic. Pupils equal round and reactive. Nose without bleeding. Airway patent. NECK: Trachea midline. CARDIOVASCULAR: Regular rate and rhythm without murmurs, gallops, or rubs. RESPIRATORY: Clear to auscultation. Breath sounds equal bilaterally. No wheezes , rales, or rhonchi. GASTROINTESTINAL: Abdomen soft, non-tender, nondistended. Bowel Sounds normoactive x4. MUSCULOSKELETAL: Extremities without clubbing, cyanosis. LLE trace edema, acewrap, able move and wiggle toes NEUROLOGICAL: Awake and alert. Oriented to time, place, person. No focal neuro deficit. Moves all extremities. Normal speech. Results - Labs Labs: Laboratory Results - last 24 hr 12/19/17 07:15 Blood Type O Positive Blood Type Recheck Not needed Antibody Screen Negative - Imaging Impressions Knee X-Ray 12/19/17 06:51 CONCLUSION: Status post total knee arthroplasty. Pastor Gray MD FACR Assessment and Plan - Plan Patient is 67-year-old male with past medical history of HTN, HLD, MELLY, blood dyscrasia who came in for elective surgery secondary to Left knee osteoarthritis. Patient is status post total left knee surgery by Dr. Urrutia. Consulted for assistance with medical management. Status post left total knee arthroplasty, 12/19/17 Dr. Urrutia Left knee osteoarthritis -pain management with bowel regimen -Physical therapy eval and treat. -Plan for going home, outpatient physical therapy referral HTN HLD -Continue with home medications lisinopril 10 mg nightly, pravastatin 40 mg nightly -ASA BID -Monitor BP trend Depression, anxiety -Continue escitalopram DVT prop IVC Filter, ASA BID Code Status: Full Code Discussed Condition With: Patient, nursing Discharge Planning: DC disposition by primary team
[2017-12-19] MEDS: ceFAZolin 2 GM Premix Inj 2 GM/50 ML PIGGYBACK IV.SIG SCH ×2 (16:56→20:53)
[2017-12-19] MEDS: Multivitamin/Minerals Therapeutic Tablet PO SCH (20:53)
[2017-12-19] MEDS ORDERED: Zolpidem Tartrate 5 MG Tablet PO PRN (21:00)
[2017-12-19] MEDS ORDERED: Lisinopril 10 MG Tablet PO SCH (21:00)
[2017-12-19] MEDS ORDERED: Escitalopram 10 MG Tablet PO SCH (21:00)
[2017-12-20] MEDS: ceFAZolin 2 GM Premix Inj 2 GM/50 ML PIGGYBACK IV.SIG SCH (03:25)
[2017-12-20 05:47] LABS: Hematocrit 36.3 % (39.0-51.0); Hemoglobin 12.3 gm/dL (13.0-17.0)
[2017-12-20 06:07] LABS: Calcium 8.6 mg/dL (8.5-10.1); Carbon Dioxide 23.3 meq/L (21.0-32.0); Potassium 4.5 meq/L (3.5-5.1)
--- NOTE | 2017-12-20 07:59 | P.PNOP ---
Subjective Interval history: pain controlled. ready to go home. Physical Exam Vital signs: Vital Signs 12/19/17 10:25 12/19/17 10:40 12/19/17 10:53 Temperature 97.8 F 97.5 F L Pulse Rate 66 62 57 L Respiratory Rate 20 18 18 Blood Pressure 124/61 121/61 130/67 Pulse Oximetry 94 L 94 L 94 L 12/19/17 11:09 12/19/17 13:11 12/19/17 16:00 Temperature 98.2 F 97.5 F L Pulse Rate 58 L 78 67 Respiratory Rate 16 18 18 Blood Pressure 122/58 L 135/63 128/70 Pulse Oximetry 96 94 L 94 L 12/19/17 20:00 12/20/17 00:00 12/20/17 04:00 Temperature 97.5 F L 97.9 F 98.2 F Pulse Rate 67 68 72 Respiratory Rate 18 17 17 Blood Pressure 143/71 H 117/55 L 127/68 Pulse Oximetry 96 97 94 L Intake & Output 12/19/17 12/20/17 12/20/17 18:59 06:59 18:59 Intake Total 3548.795 / 3548.795 100 / 100 Output Total 150 / 150 900 / 900 Balance 3398.795 / 3398.795 -800 / -800 Weight 125.3 kg 126.2 kg Intake: IV 1468.795 / 1468.795 100 / 100 LR 1000 mL Inj 1,000 ML @ 30 1000 / 1000 mls/hr IV.SIG .Q24H LEEANN Rx#: [id number] Cyklokapron Inj 1,879.5 MG In 118.795 / 118.795 NS Inj 100 ML @ 200 mls/hr IV. SIG ONCE LEEANN Rx#:[id number] Vancomycin Inj 1,000 MG In NS 250 / 250 Inj 250 ML @ 250 mls/hr IV.SIG BOILER INSTALLER LEEANN Rx#:[id number] Ancef 2 GM Premix Inj 2 gm In 100 / 100 100 / 100 50 ml @ 100 mls/hr IV.SIG Q6H LEEANN Rx#:[id number] Oral 1080 / 1080 Anesthesia Amount 1000 / 1000 Output: Estimated Blood Loss 150 / 150 Urine Amount (Catheter) 900 / 900 Straight 900 / 900 Other: # Voids 4 5 Date of Last Bowel Movement 12/18/17 # Bowel Movements 0 Narrative: in bed, nad dressing c/d/i chaparro alfaro nvi - Urinary Catheter Management Straight Cath placed during this visit: yes, but has since been removed by the nurse Reason for continuing: Not indwelling catheter Insertion date: 12/20/17 Insertion time: 04:55 Removal date: 12/20/17 Removal time: 05:10 Results - Labs CBC & Chem 7: 12/20/17 04:55 12/20/17 04:55 Laboratory Results - last 24 hr 12/19/17 12/20/17 12/20/17 07:15 04:55 04:55 Hgb 12.3 L Hct 36.3 L Sodium 134 L Potassium 4.5 Chloride 100 Carbon Dioxide 23.3 Anion Gap 11 BUN 21 H Creatinine 1.27 Estimated GFR 56 L Random Glucose 124 H Calcium 8.6 Blood Type O Positive Blood Type Recheck Not needed Antibody Screen Negative - Imaging Impressions Knee X-Ray 12/19/17 06:51 CONCLUSION: Status post total knee arthroplasty. Pastor Gray MD FACR Assessment and Plan - Ortho Post Op Day # 1 - Assessment and Plan s/p L TKA wbat ok to maintain dressing unless saturated asa 81 ivc filter placed last week PT d/c planning home - patient going to start OP PT this week f/up dr. redmond 2 weeks
[2017-12-20 08:52] VITALS: BP 132/69; PULSE 64; RESP 18; TEMP 97.7; O2SAT 96
[2017-12-20] MEDS ORDERED: Calcium/Vitamin D 250/125 MG Tablet PO SCH (09:00)
[2017-12-20] MEDS ORDERED: Multivitamin/Minerals Therapeutic Tablet PO SCH (09:00)
[2017-12-20] MEDS: Multivitamin/Minerals Therapeutic Tablet PO SCH (09:01)
[2017-12-20] MEDS: Senna/Docusate Sodium 8.6/50 MG Tablet PO SCH (09:01)
--- NOTE | 2017-12-20 14:26 | MD ---
cc: Evaristo Urrutia MD DATE OF DISCHARGE: 12/20/2017 ADMITTING DIAGNOSIS: Severe degenerative osteoarthritis, left knee. DISCHARGE DIAGNOSIS: Severe degenerative osteoarthritis, left knee. HISTORY OF PRESENT ILLNESS: Mr. Zuñiga is a 67-year-old male who is a longstanding patient of Dr. Evaristo Urrutia at the orthopedic clinic. Currently, he is being treated for a severe progressive left knee pain. The patient states the pain has been present for several years and is currently inhibiting his activities of daily living. He has severe aching sensation aggravated with weightbearing activities. He has no alleviating factors at this point in time, although in the past he has tried medications, bracing, physical therapy, home exercise program, corticosteroid injection without long lasting relief of symptoms. He does also have a history of a well-functioning right total knee arthroplasty. The patient does have x-ray evidence of severe degenerative osteoarthritis of the left knee. While in the office, the patient was counseled on his diagnosis and treatment options. Risks, benefits, and indications all were discussed. The patient did elect to proceed with surgical intervention to include a left total knee arthroplasty. The patient also does have a history of multiple DVTs and had an IVC filter placed prior to surgical intervention. PROCEDURE: Date of surgery 12/19/2017, left total knee arthroplasty. POSTOP: After surgery, the patient was admitted to [facility] where he received appropriate medical management, pain control, DVT prophylaxis, as well as physical therapy. DISCHARGE: Once the patient is discharged in the hospital, he is cleared to go home. The patient will start outpatient physical therapy upon his discharge home. He is in stable condition. He may weight bear as tolerated. He has been instructed on wound care management. The patient has been provided prescriptions for pain control and DVT prophylaxis medication. The patient has also been provided a followup appointment approximately 2 weeks from his date of surgery. The patient asked appropriate questions, which have been answered. The patient is cleared for discharge. Dictated by DONNIE Gomez Evaristo Urrutia MD JWM/rs , 08:14 AM , 08:20 AM
== END 2017-12-20 10:49 | disposition home or self-care (01) ==
LOC: HSDC 05:48 → EDSTATUS 08:30 → N06 11:43
PROVIDERS: ADMIT Orthopaedic Surgery Sports Medicine; ATTEND Orthopaedic Surgery Sports Medicine